=== PATIENT | female | born 1940 | race Caucasian/White ===

== ENCOUNTER → 2017-08-23 | Outpatient (CLI) | payer MEDICARE, BC | LOC: M WHC 15:03 | DX: Z12.31 Encounter for screening mammogram for malignant neoplasm of breast (principal); Z80.3 Family history of malignant neoplasm of breast; Z78.0 Asymptomatic menopausal state | CPT/HCPCS: 77067 ==

== ENCOUNTER → 2021-02-08 | Outpatient (CLI) | payer MEDICARE, BC ==
[~2021-02-08] MED LIST: ACET65TA OR; ALDA25TA4 OR; ALLO300T OR; ASPI81TA45 OR; ASPI81TA86 PO; ATEN50TA2 OR; ATOR1TAB21 PO; B-12100T2 PO; CALCIUM WITH D PO; CIPR500T19 OR; DICL1GEL3; ERGO500029 PO; FISH1000 OR; FLAG500T OR; FURO40TA2 PO; LASI80TA OR; LEVO100T5 PO; METF-838 PO; METF500T4 OR; METO1TAB7 PO; OMEP-221 PO; POTA10CA2 OR; POTA20TA6 PO; SPIR-10 PO; VICO5TAB OR; VITAMIN D PO; ZYLO300T6 PO
--- NOTE | 2021-02-08 16:21 | REP ---
INDICATION: HEMOPTYSIS COMPARISON: 06/25/2011 TECHNIQUE: PA and lateral. FINDINGS: The mediastinum and cardiac silhouette are normal. The lung traylor demonstrate diffuse chronic changes without acute consolidation, effusion, or pneumothorax. The skeletal structures demonstrate degenerative changes primarily involving thoracic spine and bilateral shoulders. IMPRESSION: Chronic interstitial changes. No acute cardiopulmonary process. <Electronically signed by Dennis Staley > 02/08/21 [id number]
== END ==
LOC: M PLAIMG 15:08
PROVIDERS: ATTEND Family Medicine
DX: R04.2 Hemoptysis (principal); J84.89 Other specified interstitial pulmonary diseases

== ENCOUNTER → 2021-04-20 | Outpatient (REF) | payer MEDICARE, BC ==
[2021-04-20 20:26] LABS: MAGNESIUM LEVEL 1.6 MG/DL (1.8-2.4); PERCENT SATURATION 14.2 % (13.2-45.0)
== END ==
LOC: M LAB REF 18:31
PROVIDERS: ATTEND Internal Medicine Nephrology
DX: D50.9 Iron deficiency anemia, unspecified (principal); E83.42 Hypomagnesemia

== ENCOUNTER 2021-05-13 18:06 | Inpatient (IN) | payer MEDICARE, BC ==
[~2021-05-13] VITALS: Ht 157.5 cm; Wt 87.9 kg
[2021-05-13 18:53] LABS: BASO # 0.1 10^3/uL (0.0-0.2); EOS # 0.2 10^3/uL (0.0-0.5); EOS % 3.9 % (0.0-3.0); HEMATOCRIT 32.5 % (36.0-47.0); HEMOGLOBIN 10.3 g/dl (12.0-15.5); LYMPH # 1.3 10^3/uL (1.5-5.0); LYMPH % 20.9 % (24.0-44.0); MEAN CORPUSCULAR HEMOGLOBIN 30.7 pg (27.0-33.0); MEAN CORPUSCULAR HGB CONC 31.7 g/dl (32.0-36.5); MONO # 0.5 10^3/uL (0.0-0.8); MONO % 8.2 % (2.0-8.0); NEUTROPHILS # 4.1 10^3/uL (1.5-8.5); NEUTROPHILS % 65.7 % (36.0-66.0); PLATELET COUNT, AUTOMATED 254 10^3/uL (150-450); RED BLOOD COUNT 3.35 10^6/uL (4.00-5.40); WHITE BLOOD COUNT 6.2 10^3/uL (4.0-10.0)
[2021-05-13 19:13] LABS: PROTHROMBIN TIME 13.6 SECONDS (12.7-14.5)
[2021-05-13 19:14] LABS: PARTIAL THROMBOPLASTIN TIME 23.8 SECONDS (25.9-37.0)
[2021-05-13 19:32] LABS: ALBUMIN 3.7 GM/DL (3.2-5.2); ALT/SGPT 17 U/L (12-78); BILIRUBIN,DIRECT 0.1 MG/DL (0.0-0.2); BILIRUBIN,TOTAL 0.5 MG/DL (0.2-1.0); BLOOD UREA NITROGEN 32 MG/DL (7-18); CALCIUM LEVEL 9.3 MG/DL (8.8-10.2); CARBON DIOXIDE LEVEL 28 MEQ/L (21-32); CHLORIDE LEVEL 108 MEQ/L (98-107); CK-MB VALUE MASS 2.4 NG/ML (<3.6); CPK CREATINE PHOSPHOKINASE 124 U/L (26-192); CREATININE FOR GFR 1.28 MG/DL (0.55-1.30); GLOMERULAR FILTRATION RATE 42.9 (>39); GLUCOSE, FASTING 105 MG/DL (70-100); MB/CK RELATIVE INDEX 1.94 (< OR =4); NT-PRO BNP 411 PG/ML (<450); POTASSIUM SERUM 4.2 MEQ/L (3.5-5.1); SODIUM LEVEL 142 MEQ/L (136-145); THYROXINE (T4) 9.7 UG/DL (4.5-12.0); TOTAL PROTEIN 8.5 GM/DL (6.4-8.2); TROPONIN I < 0.02 NG/ML (< 0.10)
--- NOTE | 2021-05-13 19:48 | ECGEPIP ---
[facility] - ED Test Date: 2021-05-13 Pat Name: CHARISMA SAM Department: Room: - Gender: Female [employer]: : 1940 Requested By: Nitesh Ozuna Order Number: [id number] Reading MD: Nitesh Ozuna Measurements Intervals [place] Rate: 76 P: 36 WV: 136 QRS: 76 QRSD: 136 T: 55 QT: 404 QTc: 454 Interpretive Statements Normal sinus rhythm Right bundle branch block Nonspecific ST T wave changes No prior ECG for comparison Electronically Signed on 05-13-2021 19:48:28 EDT by Nitesh Ozuna
--- NOTE | 2021-05-13 21:00 | REP ---
INDICATION: DYSPNEA/COUGH COMPARISON: 02/08/2021 TECHNIQUE: Portable AP view of the chest FINDINGS: Vague area of opacity in the right mid/upper lung zone. Stable cardiomegaly. Chronic interstitial changes similar to prior examination. No effusion. No pneumothorax. IMPRESSION: Vague area of opacity in the right mid/upper lung zone warrants further investigation. Consider chest CT follow-up. <Electronically signed by Dennis Staley > 05/13/21 [id number]
[2021-05-13] MEDS ORDERED: ISOVUE-370 76% 100ML VIAL As Ordered ONE (22:24)
--- NOTE | 2021-05-14 01:22 | REPVR ---
PROCEDURE INFORMATION: Exam: CTA Chest With Contrast Exam date and time: 05/13/2021 10:28 PM Age: 80 years old Clinical indication: Other: Hemoptysis; Additional info: Hemoptysis, opacity on chest xray TECHNIQUE: Imaging protocol: Computed tomographic angiography of the chest with contrast. 3D rendering (Not supervised by radiologist): MIP and/or 3D reconstructed images were created by the technologist. Radiation optimization: All CT scans at this facility use at least one of these dose optimization techniques: automated exposure control; mA and/or kV adjustment per patient size (includes targeted exams where dose is matched to clinical indication); or iterative reconstruction. Contrast material: ISOVUE 370; Contrast volume: 75 ml; Contrast route: INTRAVENOUS (IV); COMPARISON: CR PORTABLE CHEST X-RAY 05/13/2021 7:09 PM FINDINGS: PULMONARY ARTERIES: The main pulmonary trunk is not dilated above normal range. Enhancement within the pulmonary arteries is preserved bilaterally through the distal segmental levels, without evidence of intraluminal, acute appearing, occlusive pulmonary emboli. There is luminal irregularity and narrowing of anterior right upper lobe segmental pulmonary arterial branch (image 77, series 401) which appears to be secondary to extrinsic compression/invasion, discussed below in greater detail, and not secondary to pulmonary embolus. HEART AND AORTA: Cardiac size is borderline. No pericardial effusion. There is some calcification at the mitral valve and aortic valve. Coronary arterial calcifications are noted. No thoracic aortic aneurysm or dissection. There is calcific thoracic aortic atherosclerosis. Visualized proximal great vessels within the superior mediastinum are atherosclerotic but appear to be patent. There is atherosclerosis within visualized upper most abdomen, including severe appearing celiac axis stenosis with poststenotic dilation and moderate to severe appearing atherosclerotic disease at the origin of the superior mesenteric artery. Remaining vasculature within the abdomen is not included on this exam. MEDIASTINUM: No mediastinal soft tissue gas. The visualized thyroid gland is slightly heterogeneous. Evaluation is limited by beam hardening artifact. No mediastinal hematoma. Trace amount of fluid is seen within the pericardial recesses. Mildly enlarged paratracheal, subcarinal and right hilar lymph nodes are seen. Malignant nodes cannot be excluded. Clinical correlation is advised. LUNGS: The lungs are symmetric in expansion. There is a spiculated, cavitary right upper lobe perihilar pulmonary parenchymal mass measuring approximately 4.3 cm in maximal dimension worrisome for malignancy. Centrally necrotizing infection could have this appearance but is felt less likely. Clinical correlation is advised. This parenchymal mass extends to the right pulmonary hilum. There is occlusion of right upper lobe anterior segmental/subsegmental bronchi and extrinsic compression or invasion of an anterior right upper lobe segmental pulmonary artery. There is luminal irregularity and wall thickening of the right upper lobe bronchus. Invasion of the right mediastinum cannot be excluded. Soft tissue diagnosis is advised. There is a 6 mm right lower lobe pulmonary nodule (image 73, series 401) of uncertain significance but metastatic disease/malignancy would be a consideration. A few scattered subpleural opacities are seen bilaterally of uncertain significance, possibly atelectasis and/or parenchymal scarring. Follow-up is advised to confirm resolution/stability. Mild focal ground-glass opacities are seen within the right lower lobe which could be correlated for mild interstitial pneumonitis. There is no pneumothorax or pleural effusion. UPPER ABDOMEN: No free air or free fluid within the visualized upper most abdomen. 5 mm hypodense left hepatic lobe anterior lesion noted of uncertain significance. 5 mm suspected hyperdense lesion at the upper pole of the right kidney (image 79, series 403). Hypodense lesions at the upper pole of the visualized right kidney may represent cystic changes but the kidney is incompletely assessed. Consider nonemergent formal evaluation of the abdomen for more complete assessment. MSK AND BODY WALL: There is a slightly spiculated left lateral chest wall subcutaneous 14 mm nodule (image 147, series 401) of uncertain significance. Neoplastic lesion or lymph node cannot be excluded with this appearance. Clinical follow-up is advised. This lesion is likely palpable. The bones appear slightly demineralized. Degenerative changes of the spine noted. IMPRESSION: No evidence for acute pulmonary emboli. There is a 4.3 cm spiculated cavitary right upper lobe pulmonary parenchymal mass, worrisome for malignancy. There appears to be extrinsic compression or invasion of the right upper lobe anterior segmental pulmonary artery as well as bronchial involvement. Pulmonary findings discussed above in detail. Indeterminate hepatic lesion and right renal lesion. Indeterminate left lateral chest wall nodule. Nonemergent recommendations discussed above. Other nonemergent findings discussed above. Electronically signed by: Randall Holder On 05/14/2021 01:22:10 AM
[2021-05-14] MEDS ORDERED: METOPROLOL SUCC (TopROL XL) 50MG **XL** TAB PO ONE (03:30)
[2021-05-14] MEDS ORDERED: ALLO300T2 PO (08:57)
[2021-05-14] MEDS ORDERED: POTASSIUM CHLORIDE 10MEQ SR TABLET PO SCH (09:00)
[2021-05-14] MEDS ORDERED: HOME MED LIST COMPLETE! XX SCH (09:25)
[2021-05-14] MEDS ORDERED: NORCO, ANEXSIA 5/325MG TABLET (HYDROcodone/ACETAMINOPHEN) PO PRN (10:05)
[2021-05-14] MEDS ORDERED: LEVALBUTEROL 1.25 MG/0.5 ML CONCENTRATE NEB NEB PRN (10:05)
[2021-05-14] MEDS ORDERED: ONDANSETRON 4MG/2ML VIAL IV PRN (10:05)
[2021-05-14] MEDS ORDERED: BISACODYL 10 MG SUPP PR PRN (10:05)
[2021-05-14] MEDS ORDERED: ACETAMINOPHEN TAB 650MG DOSE (2X325MG) PO PRN (10:05)
[2021-05-14] MEDS ORDERED: GLUCOSE 4GM CHEW TABLET PO PRN (13:35)
[2021-05-14] MEDS ORDERED: DEXTROSE 50% 50 ML SYRINGE IV PRN (13:35)
[2021-05-14] MEDS ORDERED: GLUCAGON INJ 1MG VIAL SC PRN (13:35)
--- NOTE | 2021-05-14 13:35 | HPEPDOC ---
[facility] Medical History & Physical Date of Admission May 14, 2021 Date of Service: May 14, 2021 Attending Physician: Brooklyn Davis MD History and Physical CHIEF COMPLAINT: Coughing up blood HISTORY OF PRESENT ILLNESS: Patient is a 80-year-old female with past medical history of diabetes, hypertens ion, lymphedema of the lower extremities, hypothyroidism, GERD, gout, vitamin D deficiency, hx of tobacco use who presented to [facility] emergency room with the chief complaint of increased episodes of coughing up blood since 05/13/2021. The patient states her symptoms started 05/13/2021 when she began coughing up what she described as several teaspoons of some bright and some dark blood, some ulisses ts. She denies ever having had history of this happening in the past, denies trauma to the chest, denies other bleeding issues. She is not on anticoagulation, antiplatelets or aspirin at home. She denies hematuria, dysuria, shortness of breath, palpitations, fevers, chills, lightheadedness, blurry vision, dizziness. She did admit to some chills but denies recent illness. The patient said that over the evening coughing with blood did not increase. On 05/14/2021 her daughter told her to come to the ER to get further evaluated. In the emergency room her vital signs were stable. She had several coughing episodes of very little blood. H/H was stable and appeared to be close to her baseline. CTA chest showed: No evidence for acute pulmonary emboli but there was an incidental 4.3 cm spiculated cavitary right upper lobe pulmonary parenchymal mass, worrisome for malignancy. It appears to be extrinsic compression or invasion of the right upper lobe anterior segmental pulmonary artery as well as bronchial involvement. Other incidental findings included: indeterminate hepatic lesion, right renal lesion and indeterminate left lateral chest wall nodule. Patient's case was discussed with Dr. Sim, CT surgery, who discussed the case with Dr. Garcia, pulmonary medicine. Decision was made to admit to medicine service for hemoptysis, chest mass r/o neoplasm requiring bronchoscopy. REVIEW OF SYSTEMS: Negative except for what is mentioned above PAST MEDICAL HISTORY: diabetes, hypertension, lymphedema of the lower extremities, hypothyroidism, GERD, gout, vitamin D deficiency, hx of tobacco use, ?CKD stage II PAST SURGICAL HISTORY: Cholecystectomy, bilateral carpal tunnel release FAMILY HISTORY: Fathercolon cancer, CVA. Brotherblood dyscrasia. at 65 years old SOCIAL HISTORY: Higher smoker 1 pack per day for 33 years. Quit 30 years ago. Drugs alcohol socially, denies illicit drug use. She lives with her whom she helps care for. She follows with primary care provider and nephrology regularly. ALLERGIES: Please see below. HOME MEDICATIONS: Please see below. PHYSICAL EXAMINATION: VS: 97F, heart rate 6772, blood pressure 164/72, 93% on room air CONSTITUTIONAL: No acute distress, resting comfortably, AAO x 3 EYES: PERRLA, EOM intact HENT, MOUTH: Normocephalic, atraumatic, moist mucous membranes NECK: SUPPLE, no JVD, no lymphadenopathy, no carotid bruit CV: Regular rate and rhythm, S1S2 normal, no murmurs/rubs/gallops RESPIRATORY: Clear to auscultation bilaterally, no rales/rhonchi/wheezes GI: BS positive in 4 quadrants, soft, nontender, nondistended, no rebound or guarding, no organomegaly : Deferred MUSCULOSKELETAL: Normal ROM of extremities. No cyanosis, clubbing, joint deformity. B/l lower ext lymphedema, no pitting extremity edema. Large lipoma on left shoulder, right thoracic area of back. INTEGUMENTARY: Intact, no rashes, no lesions, no erythema NEUROLOGIC: Cranial Nerves II-XII are intact, no focal deficits PSYCHIATRIC: Mood and affect are normal LABORATORY DATA: Please see below MICRO: F/u blood cultures x 2 IMAGING: CTA chest: No evidence for acute pulmonary emboli. There is a 4.3 cm spiculated cavitary right upper lobe pulmonary parenchymal mass, worrisome for malignancy. There appears to be extrinsic compression or invasion of the right upper lobe anterior segmental pulmonary artery as well as bronchial involvement. Pulmonary findings discussed above in detail. Indeterminate hepatic lesion and right renal lesion. Indeterminate left lateral chest wall nodule. Nonemergent recommendations discussed above. ASSESSMENT: 80-year-old female with past medical history of diabetes, hypertension, lymphedema of the lower extremities, hypothyroidism, GERD, gout, vitamin D deficiency, hx of tobacco use admitted to medicine service for hemoptysis, chest mass r/o neoplasm requiring bronchoscopy. PLAN: Hemoptysis likely 2/2 to chest mass r/o neoplasm -H/H stable, currently no increased coughing or bleeding -CTA above, long history of tobacco use -Discussed with CT surgery (Dr. Sim) and Pulmonary (Dr. Garcia). Plan is bronchoscopy on 05/15/21, NPO after midnight tonight -Tele, Q6HCBC, no AC, close monitoring on PCU Diabetes mellitus -BS stable -FS AC, ISS, consistent carb diet Hypertension -Resume home antihypertensive. Lymphedema of the lower extremities, chronic -C/w home diuretics Hypothyroidism -Levothyroxine GERD -PPI Gout -Allopurinol ?CKD stage II -Cr wnl currently -Follows with Dr. Hancock, nephrology DVT px -SCD, teds. AC CI due to bleeding DISPOSITION: Admitted to PCU. Plan is bronchoscopy in the AM, consults above. Plan is home when medically improved. Vital Signs Vital Signs Date Time Temp Pulse Resp B/P (MAP) Pulse Ox O2 Delivery O2 Flow Rate FiO2 05/14/21 12:15 64 93 05/14/21 12:01 160/64 (96) 05/14/21 07:30 97.8 18 Room Air Laboratory Data Labs 24H Laboratory Tests 2 05/13/21 18:40: Immature Granulocyte % (Auto) 0.3, Neutrophils (%) (Auto) 65.7, Lymphocytes (%) (Auto) 20.9L, Monocytes (%) (Auto) 8.2H, Eosinophils (%) (Auto) 3.9H, Basophils (%) (Auto) 1.0, Neutrophils # (Auto) 4.1, Lymphocytes # (Auto) 1.3L, Monocytes # (Auto) 0.5, Eosinophils # (Auto) 0.2, Basophils # (Auto) 0.1, Nucleated Red Blood Cells % (auto) 0.0, Prothrombin Time 13.6, Prothromb Time International Ratio 1.00, Activated Partial Thromboplast Time 23.8L, Anion Gap 6L, Glomerular Filtration Rate 42.9, Calcium Level 9.3, Total Bilirubin 0.5, Direct Bilirubin 0.1, Aspartate Amino Transf (AST/SGOT) 17, Alanine Aminotransferase (ALT/SGPT) 17, Alkaline Phosphatase 140H, Total Creatine Kinase 124, Creatine Kinase MB 2.4, Creatine Kinase MB Relative Index 1.94, Troponin I < 0.02, IJ-[id number]-Type Natriuretic Peptide 411, Total Protein 8.5H, Albumin 3.7, Albumin/Globulin Ratio 0.8L, Thyroid Stimulating Hormone (TSH) 5.140H, Thyroxine (T4) 9.7 CBC/BMP Laboratory Tests 05/13/21 18:40 Microbiology Microbiology 05/13/21 Respiratory Virus Panel (PCR) ([facility]) - Final, Complete Home Medications Scheduled Atorvastatin Calcium (Atorvastatin Calcium) 20 Mg Tablet, 20 MG PO QHS Ergocalciferol (Vitamin D2) (Vitamin D2) 50,000 Units Cap, 50,000 UNIT PO Q2WK Furosemide (Furosemide) 40 Mg Tablet, 40 MG PO DAILY Levothyroxine Sodium (Levothyroxine Sodium) 100 Mcg Tablet, 100 MCG PO DAILY Metformin HCl (Metformin HCl ER) 500 Mg Tab.er.24h, 1,000 MG PO BID Metoprolol Succinate (Metoprolol Succinate) 50 Mg Tab.er.24h, 50 MG PO DAILY Omeprazole (Omeprazole) 40 Mg Capsule.dr, 40 MG PO DAILY Potassium Chloride (Potassium Chloride) 20 Meq Tab.er.prt, 20 MEQ PO BID Spironolactone (Spironolactone) 25 Mg Tablet, 50 MG PO DAILY allopurinoL (allopurinoL) 300 Mg Tablet, 300 MG PO Q2D Allergies Coded Allergies: Penicillins (Verified Allergy, Unknown, 09/23/19) A-FIB/CHADSVASC A-FIB History Current/History of A-Fib/PAF?: No Current PO Anticoag Therapy: No Age/Risk Factor Scoring CHADSVASC: CHADSVASC Response (Comments) Value Age Risk Factor Age >/= 75 years old 2 Gender Risk Factor Female 1 Hx of CHF No 0 Hx of HTN Yes 1 Hx of Stroke/TIA/or VTE No 0 Hx of Diabetes Yes 1 Hx of Vascular Disease Yes 1 Total 6 Treatment Treatment ordered: Other Other anticoagulant ordered: scd Brooklyn Davis MD May 14, 2021 13:35
[2021-05-14 14:49] LABS: HEMOGLOBIN 9.1 g/dl (12.0-15.5); MEAN CORPUSCULAR HGB CONC 31.4 g/dl (32.0-36.5); MEAN CORPUSCULAR VOLUME 95.7 fl (80.0-96.0); PLATELET COUNT, AUTOMATED 222 10^3/uL (150-450); RED BLOOD COUNT 3.03 10^6/uL (4.00-5.40); WHITE BLOOD COUNT 6.1 10^3/uL (4.0-10.0)
--- NOTE | 2021-05-14 15:33 | CR.PDOC ---
General Date of Consultation: May 14, 2021 Referring Provider: Brooklyn Davis MD Attending Physician: Brooklyn Davis MD Consultation REASON FOR CONSULTATION/CHIEF COMPLAINT: Hemoptysis and right upper lobe cavitary lesion HISTORY OF PRESENT ILLNESS: This is a 72-year-old female with past medical history of diabetes, hypertension, lower extremity lymphedema, hypothyroidism, former tobacco smoker of [id number] smoking history presented to hospital with hemoptysis . Patient was having about 2 teaspoon size of fresh and clotted blood hemoptysis last night when she was trying to help her who has Parkinson. She became worried and came to the emergency department for further evaluation. Other than experiencing hemoptysis, she does not have any symptoms of fever, chills, night sweat, weight loss, sick contact, shortness of breath, wheezing, chest pain. She has never been incarcerated in the past. There is no new changes in her environment. She has not relocated anywhere recently. She has been babysitting her son's dog occasionally. Upon admission to the hospital, her blood work was unremarkable. However, CT angiography of the chest done showed right upper lobe cavitary lesion. This lesion is located between the takeoff of right upper lobe anterior and posterior segment. There is also mildly enlarged paratracheal and subcarinal lymph node. Pulmonary was consulted for further recommendation and work-up. PAST MEDICAL HISTORY: diabetes, hypertension, lymphedema of the lower extremities, hypothyroidism, GERD, gout, vitamin D deficiency, hx of tobacco use, ?CKD stage II PAST SURGICAL HISTORY: Cholecystectomy, bilateral carpal tunnel release FAMILY HISTORY: Fathercolon cancer, CVA. Brotherblood dyscrasia. at 65 years old SOCIAL HISTORY: Higher smoker 1 pack per day for 33 years. Quit 30 years ago. Drugs alcohol socially, denies illicit drug use. She lives with her whom she helps care for. She follows with primary care provider and nephrology regularly. ALLERGIES: Please see below. HOME MEDICATIONS: Please see below. REVIEW OF SYSTEMS: 12 point review of system was negative except for stated in HPI. PHYSICAL EXAMINATION: VITAL SIGNS: Please see below. GENERAL APPEARANCE: Alert and oriented x3. Not in any acute distress.. HEENT: No evidence of JVD or cervical adenopathy. RESPIRATORY: Clear to auscultation bilaterally with no evidence of wheezing, crackles, rhonchi. CARDIOVASCULAR: Normal S1-S2 with no evidence of murmur. ABDOMEN: Soft nontender with normoactive bowel sounds. EXTREMITIES: No evidence of clubbing of the fingers. Bilateral pedal edema which is nonpitting. NEUROLOGICAL: Nonfocal. PSYCHIATRIC: Alert and oriented x3. LABORATORY DATA: Please see below. ASSESSMENT/PLAN: This is a 72-year-old female with past medical history of diabetes, hypertension, lower extremity lymphedema, hypothyroidism, former tobacco smoker of [id number] smoking history presented to hospital with hemoptysis. 1. Hemoptysis. 2. Right upper lobe cavitary lesion. 3. Mildly enlarged mediastinal lymph nodes. Plan: -Given the lack of constitutional symptoms and no history of sick contact or exposure, infectious etiology is less likely. I believe malignancy is at the top of the differential followed by inflammatory process. However, due to the hemoptysis, we will perform a diagnostic bronchoscopy with possible BAL and brush biopsy. At some point she may require an EBUS depending on the finding on bronchoscopy. -N.p.o. after midnight tonight. -Consent for bronchoscopy obtained with risk and benefit explained. Biggest risk with this procedure is respiratory failure, bleeding, pneumothorax with biopsy. Patient understands and already signed the procedure consent. Vital Signs/I&O Vital Signs Date Time Temp Pulse Resp B/P (MAP) Pulse Ox O2 Delivery O2 Flow Rate FiO2 05/14/21 13:15 65 93 05/14/21 13:00 97.7 16 150/67 (94) Room Air Laboratory Data Labs 24H Laboratory Tests 2 05/13/21 18:40: Immature Granulocyte % (Auto) 0.3, Neutrophils (%) (Auto) 65.7, Lymphocytes (%) (Auto) 20.9L, Monocytes (%) (Auto) 8.2H, Eosinophils (%) (Auto) 3.9H, Basophils (%) (Auto) 1.0, Neutrophils # (Auto) 4.1, Lymphocytes # (Auto) 1.3L, Monocytes # (Auto) 0.5, Eosinophils # (Auto) 0.2, Basophils # (Auto) 0.1, Nucleated Red Blood Cells % (auto) 0.0, Prothrombin Time 13.6, Prothromb Time International Ratio 1.00, Activated Partial Thromboplast Time 23.8L, Anion Gap 6L, Glomerular Filtration Rate 42.9, Calcium Level 9.3, Total Bilirubin 0.5, Direct Bilirubin 0.1, Aspartate Amino Transf (AST/SGOT) 17, Alanine Aminotransferase (ALT/SGPT) 17, Alkaline Phosphatase 140H, Total Creatine Kinase 124, Creatine Kinase MB 2.4, Creatine Kinase MB Relative Index 1.94, Troponin I < 0.02, [id number]-Pzu-[id number]-Type Natriuretic Peptide 411, Total Protein 8.5H, Albumin 3.7, Albumin/Globulin Ratio 0.8L, Thyroid Stimulating Hormone (TSH) 5.140H, Thyroxine (T4) 9.7 05/14/21 14:29: Nucleated Red Blood Cells % (auto) 0.0 CBC/BMP Laboratory Tests 05/13/21 18:40 05/14/21 14:29 Microbiology Microbiology 05/13/21 Respiratory Virus Panel (PCR) ([facility]) - Final, Complete Allergies Coded Allergies: Penicillins (Verified Allergy, Unknown, 09/23/19) Home Medications Scheduled Atorvastatin Calcium (Atorvastatin Calcium) 20 Mg Tablet, 20 MG PO QHS, (Reported) Ergocalciferol (Vitamin D2) (Vitamin D2) 50,000 Units Cap, 50,000 UNIT PO Q2WK, (Reported) Furosemide (Furosemide) 40 Mg Tablet, 40 MG PO DAILY, (Reported) Levothyroxine Sodium (Levothyroxine Sodium) 100 Mcg Tablet, 100 MCG PO DAILY, (Reported) Metformin HCl (Metformin HCl ER) 500 Mg Tab.er.24h, 1,000 MG PO BID, (Reported) Metoprolol Succinate (Metoprolol Succinate) 50 Mg Tab.er.24h, 50 MG PO DAILY, (Reported) Omeprazole (Omeprazole) 40 Mg Capsule.dr, 40 MG PO DAILY, (Reported) Potassium Chloride (Potassium Chloride) 20 Meq Tab.er.prt, 20 MEQ PO BID, (Reported) Spironolactone (Spironolactone) 25 Mg Tablet, 50 MG PO DAILY, (Reported) allopurinoL (allopurinoL) 300 Mg Tablet, 300 MG PO Q2D, (Reported) GONZALEZ LAYTON MD May 14, 2021 15:33
[2021-05-14] MEDS: FUROSEMIDE 40 MG TAB PO SCH (15:38)
[2021-05-14] MEDS: OMEPRAZOLE 20 MG CAP PO SCH (15:38)
[2021-05-14] MEDS: METOPROLOL SUCC (TopROL XL) 50MG **XL** TAB PO SCH (15:39)
[2021-05-14 15:45] VITALS: BP 162/88
[2021-05-14] MEDS ORDERED: KETOROLAC 30 MG/ML 1ML VIAL IV SCH (16:00)
[2021-05-14] MEDS: LEVOTHYROXINE 100MCG TABLET (0.1MG) PO SCH (16:43)
[2021-05-14] MEDS: SPIRONOLACTONE 25 MG TAB PO SCH (16:44)
[2021-05-14] MEDS: LEVALBUTEROL 1.25 MG/0.5 ML CONCENTRATE NEB NEB SCH ×2 (16:46→20:00)
[2021-05-14 16:47] LABS: ABG BASE EXCESS 1.2 (-2.0-2.0); ABG O2 SATURATION 98.5 % (95.0-99.0); ABG PARTIAL PRESSURE CO2 36.4 mmHg (35.0-45.0); ABG PARTIAL PRESSURE O2 117.4 mmHg (75.0-100.0); ABG STANDARD HCO3 25.5 MEQ/L (22.0-26.0); ABG TOTAL CO2 26.1 MEQ/L (23.0-31.0); ABG pH (ARTERIAL) 7.454 UNITS (7.350-7.450)
--- NOTE | 2021-05-14 17:13 | CR ---
CONSULTATION DATE: 05/14/2021 REASON FOR CONSULTATION: The patient is seen at the request of Dr. Doherty of the emergency room for hemoptysis. HISTORY OF PRESENT ILLNESS: The patient is a 80-year-old white female who reports over the last two days spitting up blood. Just prior to admission, she coughed up clots which were bright red. She denied that it is true coughing and not hemoptysis. This has never happened before. She does not complain of shortness of breath. There has been no chest pain or chest discomfort. The last 24 to 48 hours, she has noticed some wheezing. There has been no fever or sweats but she does state that she has been chilly but denies rigor. There has been no weight loss. She has been seen by hematology-oncology in 2019 for monoclonal gammopathy of unknown significance. This was first noted by urologist in [place] for mild chronic renal insufficiency. PAST MEDICAL HISTORY: 1. Diabetes. 2. Hypertension. 3. Hypothyroidism. 4. Anion gap and mild chronic renal insufficiency. 5. Chronic lymphedema which has been present for years in her lower legs of unknown origin. PAST SURGICAL HISTORY: 1. Cholecystectomy. 2. Carpal tunnel repair. MEDICATIONS AT HOME: 1. Allopurinol 300 mg every other day. 2. Atorvastatin 20 mg q.h.s. 3. Vitamin D2 1000 units q.2 weeks. 4. Lasix 40 mg q.day. 5. Synthroid 100 mcg q.day. 6. Metformin 1000 mg b.i.d. 7. Metoprolol succinate 50 mg q.day. 8. Omeprazole 40 mg q.day. 9. Potassium chloride 20 mEq b.i.d. 10. Spironolactone 50 mg q.day. 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 Rarely imbibes alcohol and no illicit drugs. TRAVEL HISTORY: She has traveled through the [facility] down to [place] and [place] in the past. No travel from the [facility] or foreign travel. EXPOSURES: She has a Geovany Sharath at home which she is transiently taking care of for her son. No birds or cats. 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 No asbestos exposure. FAMILY HISTORY: Father with colon cancer and mother "of old age" at 87 years old. REVIEW OF SYSTEMS: Constitutional: See HPI. Mild chills, no fever, sweats or weight loss. Eyes: Without diplopia, without amaurosis fugax or prior jaundice. Mouth has upper dentures. Respiratory: See HPI. Cardiac: Without true orthopnea or paroxysmal nocturnal dyspnea. She sleeps in a recliner secondary to her dying of Parkinson's disease and making it difficult for her to sleep in the same bed. No palpitations or tachycardias. No prior history of myocardial infarction. She has chronic swelling of her lower extremities. GI: Without nausea, vomiting, diarrhea, constipation, melena, hematochezia, hematemesis or abdominal pain. : Without hematuria but with polyuria, without dysuria. Neurologic: Without paresthesias, paralyses, transient monocular blindness or prior seizures. Hematologic: She has the above monoclonal gammopathy with mild anemia for which she recently has been placed on iron. Without prolonged bleeding times and not on any anticoagulation. Endocrine: With the above diabetes and hypothyroidism. Psychiatric: Without pathological anxiety, depression or psychosis. PHYSICAL EXAMINATION: General: A well-developed, overweight, obese white female in no acute distress. Vital signs: Temperature 97.8. Heart rate is 69, in sinus rhythm, respiratory rate of 18 without use of accessory muscles who is 92% saturated on room air and her blood pressure is 167/72. Eyes: Pupils equal, round and reactive to light. Extraocular muscles intact. Sclerae nonicteric. Head: Normocephalic, nose without deformity. Mouth shows mucous membranes to be pink and moist, lips and commissures without lesions. There is no thrush. She is not wearing her upper dentures and she is edentulous. Lower teeth had multiple missing teeth. Neck: Supple. There is no jugular venous distention, no subcutaneous emphysema. Trachea is midline. She has 2+ carotid upstrokes without carotid bruits. There is no thyromegaly or lymphadenopathy. Lungs show percussion that is full to the diaphragm. Auscultation reveals normal fascicular sounds without wheezes, rhonchi or rales. Cardiac exam without murmurs, clicks, gallops or rubs although she does have a prominent S2. I cannot feel PMI. S-1 is normal. Abdomen: Soft, nontender. Bowel sounds are positive. There is no hepatomegaly. No CVA tenderness. Extremities show bilateral woody edema, more on the right than the left. The woody edema extends all the way to her thighs. She has 1-2+ dorsalis pedis pulses. Lymphatics: There is no cervical, infraclavicular, supraclavicular, axillary or trochlear lymphadenopathy. Neuro/II through XII: Intact. Normal gross motor. Gross sensation intact. Ears not tested. Psychiatric shows her to be awake and alert x3 with appropriate mood and affect and conversational. LABORATORY DATA: Her white count is 6.2 with a hemoglobin and hematocrit of 10.3 and 32.5. Platelet count is 254. Differential shows 65% neutrophils, 20% lymphocytes, 8% monocytes. No immature forms or toxic granulations. Electrolytes are essentially normal with a BUN and creatinine of 32 and 1.28, glucose of 105 and calcium of 9.3 with a corresponding albumin of 3.7. TSH is 5.1 which is elevated, above the upper limit of normal of 3.7. Her PT/INR are 13.6 and 1.0 respectively with a PTT of 23 seconds. COVID status pending. IMAGING: Her chest x-ray shows her lungs fully expanded to chest wall. It is done portably. I see no infiltrates although there may be a cavitary lesion in the right upper hemithorax towards the mid-hemithorax. Cardiac silhouette is normal size. Carinae are sharp with the left being cut off from the x-ray plate. CT angio of her chest shows a cavitary lesion in the right upper lobe. The element of concern is the cutoff of the anterior branch of the right upper lobe artery. It is somewhat of an unusual pattern with the anterior artery coming off separately from the right main stem pulmonary artery so the mass is cutting it off and occluding it. The cavitary portion of the mass looks more peripheral. Her parenchyma looks to be fairly intact without emphysematous changes. There is either direct extension to the mediastinum or paratracheal lymphadenopathy to the right of trachea just before the bifurcation. There also could be a fullness of subcarinal node. IMPRESSION: 1. New onset hemoptysis. 2. Hypertension. 3. Hypothyroidism. 4. Diabetes. 5. Possible gout. PLAN/DISCUSSION: The immediate problem is the hemoptysis. By history, she has coughed up clots which have been bright red. At the present time, she is not hemoptysizing nor is she coughing. I think it has come upon us to admit her to the hospital as this may be a heralding bleed of massive hemoptysis and be prepared to deal with that hemoptysis with COVID protection and positioning as well as interventional radiology. For the time being, however, this should be an expedited but routine pulmonary workup to include bronchoscopy with biopsies to provide a tissue diagnosis. Our biggest concern is malignancy although this could also represent a fungal process, in particular aspergillosis. It is more central, however, and I do not see underlying emphysematous changes which would be leading to the accessibility to aspergillus. As the tumor may be invading the mediastinum, the surgical option is off the table but would be a candidate for chemo/immunotherapy depending upon the genetics of the tumor and local radiation. I should be noted that 90% of hemoptysis originates from bronchial arteries rather than pulmonary artery. The observation of bright red blood versus dark blood supports that in her. If she develops massive hemoptysis, embolization of the bronchial arteries would be in order. For right now, however, we need to proceed with a systematic pulmonary workup just as we would for any other mass that would present. The only reason to admit her is to be prepared for a massive hemoptysis should this be a heralding bleed. I discussed the case with Dr. Garcia of pulmonology and he will take her to the operating room tomorrow for bronchoscopy. It is an urgent bronchoscopy so as to obtain a diagnosis expeditiously so that treatment can be instituted.
[2021-05-14] MEDS ORDERED: HumaLOG INSULIN (NovoLOG) PER UNIT SC SCH (17:30)
[2021-05-14 20:00] VITALS: BP 147/68
[2021-05-14] MEDS: DOCUSATE SODIUM 100MG CAPSULE PO SCH (20:15)
[2021-05-14] MEDS: ATORVASTATIN 20 MG TAB PO SCH (20:16)
[2021-05-14 21:11] LABS: HEMATOCRIT 31.4 % (36.0-47.0); MEAN CORPUSCULAR HEMOGLOBIN 30.8 pg (27.0-33.0); MEAN CORPUSCULAR HGB CONC 31.8 g/dl (32.0-36.5); MEAN CORPUSCULAR VOLUME 96.6 fl (80.0-96.0); PLATELET COUNT, AUTOMATED 241 10^3/uL (150-450); RED BLOOD COUNT 3.25 10^6/uL (4.00-5.40); WHITE BLOOD COUNT 8.4 10^3/uL (4.0-10.0)
[2021-05-14] MEDS: NS 1,000 ML IV SCH (22:00)
[2021-05-15] VITALS (7 sets, daily range): BP systolic 123–168; BP diastolic 51–72
[2021-05-15] MEDS: LEVALBUTEROL 1.25 MG/0.5 ML CONCENTRATE NEB NEB SCH ×4 (01:06→19:37)
[2021-05-15 01:20] LABS: HEMATOCRIT 28.6 % (36.0-47.0); HEMOGLOBIN 9.1 g/dl (12.0-15.5); MEAN CORPUSCULAR HEMOGLOBIN 30.1 pg (27.0-33.0); MEAN CORPUSCULAR HGB CONC 31.8 g/dl (32.0-36.5); MEAN CORPUSCULAR VOLUME 94.7 fl (80.0-96.0); PLATELET COUNT, AUTOMATED 235 10^3/uL (150-450); RED BLOOD COUNT 3.02 10^6/uL (4.00-5.40); WHITE BLOOD COUNT 8.2 10^3/uL (4.0-10.0)
[2021-05-15] MEDS: LEVOTHYROXINE 100MCG TABLET (0.1MG) PO SCH (06:00)
[2021-05-15] MEDS ORDERED: THROMBIN SOLN 5,000 UNITS VIAL As Ordered ONE (07:15)
[2021-05-15] MEDS ORDERED: EPINEPHrine 1MG/10ML SYRINGE 1.5IN As Ordered ONE (07:15)
[2021-05-15] MEDS ORDERED: CETACAINE SPRAY 5GM As Ordered ONE (07:16)
[2021-05-15] MEDS ORDERED: dexameTHASONE 4 MG/ML 1ML VIAL (J1100 PER 1MG) As Ordered ONE (07:20)
[2021-05-15] MEDS ORDERED: LIDOCAINE 2% 100MG/5ML SDV (FOR ANES.) As Ordered ONE (07:20)
[2021-05-15] MEDS ORDERED: MIDAZOLAM INJ 2MG/2ML VIAL (J2250 PER 1MG) As Ordered ONE (07:20)
[2021-05-15] MEDS ORDERED: ONDANSETRON 4MG/2ML VIAL As Ordered ONE (07:20)
[2021-05-15] MEDS ORDERED: fentaNYL 100 MCG/2 ML INJECTION (J3010) As Ordered ONE (07:20)
[2021-05-15] MEDS ORDERED: ROCURONIUM BROMIDE 50 MG/5 ML VIAL As Ordered ONE (07:20)
[2021-05-15] MEDS ORDERED: propofoL 200 MG/20 ML VIAL As Ordered ONE (07:20)
[2021-05-15] MEDS ORDERED: SUCCINYLCHOLINE 100 MG/5 ML SYRINGE (J0330) As Ordered ONE (08:07)
[2021-05-15] MEDS ORDERED: SUGAMMADEX SODIUM 500 MG/5 ML VIAL (BRIDION) As Ordered ONE (08:10)
[2021-05-15] MEDS ORDERED: LABETALOL 100MG/20ML VIAL As Ordered ONE (08:17)
--- NOTE | 2021-05-15 08:38 | POST-OPPD ---
Postoperative Procedure Note Date Of Procedure: May 15, 2021 Time Of Procedure: 08:00 PREOPERATIVE DIAGNOSIS: Hemoptysis POSTOPERATIVE DIAGNOSIS: Hemoptysis coming from right upper lobe anterior segment. PROCEDURE: Diagnostic flexible bronchoscopy with bronchoalveolar lavage of right upper lobe (anterior segment) SURGEON: Gonzalez Coleman ANESTHESIA: General ESTIMATED BLOOD LOSS: None FINDINGS: After patient was intubated, flexible bronchoscope was introduced into the trachea through endotracheal tube. Residual blood was observed all throughout the entire tracheobronchial tree which was all suctioned. There was active slow bleeding coming from the anterior segment of the right upper lobe. No endobronchial lesion was observed. 2 x Bronchoalveolar lavage was done in the anterior segment of RUL using 60cc NS; one sample was sent for cytology and another same was sent for C&S, AFB, fungal. SPECIMENS: BAL 60cc x 2 of right upper lobe (anterior segment) COMPLICATIONS: none POSTOPERATIVE CONDITION: Stable, return to regular medsur floor. Patient tolerated the procedure without complication. Recommendations: -Follow up cytology and microbiology. -Start patient on antibiotic Levaquin for total 7 days. -Please sent JJ, Rheumatoid factor, anti-CCP, C & P-ANCA, dsDNA antibody, anti- glomerular basal membrane antibody. GONZALEZ LAYTON MD May 15, 2021 08:38
[2021-05-15] MEDS ORDERED: fentaNYL 100 MCG/2 ML INJECTION (J3010) IV PRN (08:45)
[2021-05-15] MEDS ORDERED: ONDANSETRON 4MG/2ML VIAL IV PRN (08:45)
[2021-05-15] MEDS ORDERED: LR 1,000 ML IV SCH (08:45)
[2021-05-15] MEDS ORDERED: METOCLOPRAMIDE INJ 10MG/2ML VIAL (J2765 PER 1) IV PRN (08:45)
[2021-05-15] MEDS ORDERED: allopurinoL 300 MG TAB PO SCH (09:00)
[2021-05-15] MEDS ORDERED: FLUBLOK(EGG FREE)(QUAD)INFLUENZA VACC 0.5ML SYRINGE 18YRS & OLDER IM ONE (09:00)
[2021-05-15] MEDS: SPIRONOLACTONE 25 MG TAB PO SCH (10:11)
[2021-05-15] MEDS: PANTOPRAZOLE 40MG TAB (PROTONIX) PO SCH (10:12)
[2021-05-15] MEDS: OMEPRAZOLE 20 MG CAP PO SCH (10:12)
[2021-05-15] MEDS: FUROSEMIDE 40 MG TAB PO SCH (10:13)
[2021-05-15] MEDS: METOPROLOL SUCC (TopROL XL) 50MG **XL** TAB PO SCH (10:14)
[2021-05-15] MEDS: DOCUSATE SODIUM 100MG CAPSULE PO SCH ×2 (10:15→20:28)
[2021-05-15] MEDS: MOM 30ML SUSPENSION UDC PO SCH (10:15)
[2021-05-15] MEDS: NS 1,000 ML IV SCH (11:10)
--- NOTE | 2021-05-15 11:32 | REP ---
INDICATION: hemoptysis COMPARISON: 05/13/2021 TECHNIQUE: PA and lateral. FINDINGS: There is an enlarging opacity in the right mid lung zone measuring roughly 7 cm extending from the right hilum. No effusion. No pneumothorax. Cardiac silhouette is normal. Skeletal structures are intact. IMPRESSION: Enlarging area of mass/opacity in the right midlung zone. <Electronically signed by Dennis Staley > 05/15/21 112
[2021-05-15 11:51] LABS: HEMATOCRIT 32.4 % (36.0-47.0); HEMOGLOBIN 10.1 g/dl (12.0-15.5); MEAN CORPUSCULAR HEMOGLOBIN 30.4 pg (27.0-33.0); MEAN CORPUSCULAR HGB CONC 31.2 g/dl (32.0-36.5); MEAN CORPUSCULAR VOLUME 97.6 fl (80.0-96.0); PLATELET COUNT, AUTOMATED 271 10^3/uL (150-450); RED BLOOD COUNT 3.32 10^6/uL (4.00-5.40); WHITE BLOOD COUNT 9.3 10^3/uL (4.0-10.0)
[2021-05-15 12:21] LABS: CALCIUM LEVEL 8.9 MG/DL (8.8-10.2); CREATININE FOR GFR 1.17 MG/DL (0.55-1.30); GLOMERULAR FILTRATION RATE 47.6 (>39)
[2021-05-15 13:41] LABS: HEMATOCRIT 34.4 % (36.0-47.0); HEMOGLOBIN 10.6 g/dl (12.0-15.5); MEAN CORPUSCULAR HEMOGLOBIN 30.5 pg (27.0-33.0); MEAN CORPUSCULAR HGB CONC 30.8 g/dl (32.0-36.5); MEAN CORPUSCULAR VOLUME 98.9 fl (80.0-96.0); PLATELET COUNT, AUTOMATED 222 10^3/uL (150-450); RED BLOOD COUNT 3.48 10^6/uL (4.00-5.40); WHITE BLOOD COUNT 8.8 10^3/uL (4.0-10.0)
--- NOTE | 2021-05-15 17:37 | IPNPDOC ---
Date Seen The patient was seen on 05/15/21. Progress Note SUBJECTIVE: Diagnostic flexible bronchoscopy with bronchoalveolar lavage of right upper lobe (anterior segment) done and results below. Patient has some sore throat, no other complaints on RA. Denies SOB, chest pain. OBJECTIVE: PHYSICAL EXAMINATION: VS: Please see below CONSTITUTIONAL: No acute distress, resting comfortably, AAO x 3 EYES: PERRLA, EOM intact HENT, MOUTH: Normocephalic, atraumatic, moist mucous membranes NECK: SUPPLE, no JVD, no lymphadenopathy, no carotid bruit CV: Regular rate and rhythm, S1S2 normal, no murmurs/rubs/gallops RESPIRATORY: Clear to auscultation bilaterally, no rales/rhonchi/wheezes GI: BS positive in 4 quadrants, soft, nontender, nondistended, no rebound or guarding, no organomegaly : Deferred MUSCULOSKELETAL: Normal ROM of extremities. No cyanosis, clubbing, joint deformity. B/l lower ext lymphedema, no pitting extremity edema. Large lipoma on left shoulder, right thoracic area of back. INTEGUMENTARY: Intact, no rashes, no lesions, no erythema NEUROLOGIC: Cranial Nerves II-XII are intact, no focal deficits PSYCHIATRIC: Mood and affect are normal LABORATORY DATA: Please see below MICRO: Bcx NG Sputum cx pending IMAGING: Bronchoscopy 05/15/21: Hemoptysis coming from right upper lobe anterior segment. ASSESSMENT: 80-year-old female with past medical history of diabetes, hypertension, lymphedema of the lower extremities, hypothyroidism, GERD, gout, vitamin D deficiency, hx of tobacco use admitted to medicine service for hemoptysis, chest mass r/o neoplasm requiring bronchoscopy. PLAN: Hemoptysis likely 2/2 to chest mass r/o neoplasm -H/H stable, currently no increased coughing or bleeding -Bronchoscopy results above -CT surgery (Dr. Sim) and Pulmonary (Dr. Garcia) following -Follow up cytology and microbiology, JJ, Rheumatoid factor, anti-CCP, C & P-A NCA, dsDNA antibody, anti-glomerular basal membrane antibody. -Levaquin for total 7 days. -Tele, Q6HCBC, no AC, close monitoring on PCU Diabetes mellitus -BS stable -FS AC, ISS, consistent carb diet Hypertension -C/w home meds Lymphedema of the lower extremities, chronic -C/w home diuretics Hypothyroidism -Levothyroxine GERD -PPI Gout -Allopurinol ?CKD stage II -Cr wnl currently -Follows with Dr. Hancock, nephrology DVT px -SCD, teds. AC CI due to bleeding DISPOSITION: Admitted to PCU. Plan is home when medically improved. VS, I&O, 24H, Fishbone Vital Signs/I&O Vital Signs Date Time Temp Pulse Resp B/P (MAP) Pulse Ox O2 Delivery O2 Flow Rate FiO2 05/15/21 16:01 146/64 (91) 05/15/21 16:00 97.0 85 20 97 Room Air 05/15/21 08:46 10.0 I&O- Last 24 Hours up to 6 AM 05/15/21 06:00 Intake Total 1260 ml Output Total 1500 ml Balance -240 ml Laboratory Data 24H LABS Laboratory Tests 2 05/14/21 21:02: Nucleated Red Blood Cells % (auto) 0.0 05/15/21 01:10: Nucleated Red Blood Cells % (auto) 0.0 05/15/21 07:40: Bedside Glucose (Misc Panel) 93 05/15/21 11:34: Nucleated Red Blood Cells % (auto) 0.0, Anion Gap 6L, Glomerular Filtration Rate 47.6, Calcium Level 8.9, SU-Mai-H-Type Natriuretic Peptide 804H 05/15/21 11:57: Bedside Glucose (Misc Panel) 156H 05/15/21 13:20: Nucleated Red Blood Cells % (auto) 0.0 CBC/BMP Laboratory Tests 05/14/21 21:02 05/15/21 01:10 05/15/21 11:34 05/15/21 13:20 Microbiology Microbiology 05/15/21 Acid Fast Stain - Final, Resulted 05/15/21 Mycobacterial Culture, Resulted Pending 05/15/21 Fungal Smear, Resulted Pending 05/15/21 Fungal Culture, Resulted Pending 05/15/21 Gram Stain - Final, Resulted 05/15/21 Bronchoalveolar Lavage Culture, Resulted Pending 05/13/21 Respiratory Virus Panel (PCR) (ANNA) - Final, Complete Brooklyn Davis MD May 15, 2021 17:37
[2021-05-15] MEDS ORDERED: LevoFLOXacin IV 500 MG in IV 1 EA IV ONE (18:00)
[2021-05-15 19:19] LABS: HEMATOCRIT 29.2 % (36.0-47.0); HEMOGLOBIN 9.1 g/dl (12.0-15.5); MEAN CORPUSCULAR HEMOGLOBIN 30.4 pg (27.0-33.0); MEAN CORPUSCULAR HGB CONC 31.2 g/dl (32.0-36.5); MEAN CORPUSCULAR VOLUME 97.7 fl (80.0-96.0); PLATELET COUNT, AUTOMATED 233 10^3/uL (150-450); RED BLOOD COUNT 2.99 10^6/uL (4.00-5.40); WHITE BLOOD COUNT 7.1 10^3/uL (4.0-10.0)
[2021-05-15] MEDS: ATORVASTATIN 20 MG TAB PO SCH (20:28)
[2021-05-16] VITALS: BP 116/53
[2021-05-16] MEDS: LEVALBUTEROL 1.25 MG/0.5 ML CONCENTRATE NEB NEB SCH ×2 (01:58→07:27)
[2021-05-16 04:00] VITALS: BP 137/63
[2021-05-16 05:36] LABS: CALCIUM LEVEL 8.5 MG/DL (8.8-10.2); CREATININE FOR GFR 1.32 MG/DL (0.55-1.30); GLOMERULAR FILTRATION RATE 41.4 (>39); POTASSIUM SERUM 3.8 MEQ/L (3.5-5.1)
[2021-05-16] MEDS: LEVOTHYROXINE 100MCG TABLET (0.1MG) PO SCH (05:40)
[2021-05-16 08:00] VITALS: BP 140/66
[2021-05-16] MEDS: MOM 30ML SUSPENSION UDC PO SCH (09:00)
[2021-05-16] MEDS: DOCUSATE SODIUM 100MG CAPSULE PO SCH (09:00)
[2021-05-16 09:25] VITALS: BP 140/66
[2021-05-16] MEDS: METOPROLOL SUCC (TopROL XL) 50MG **XL** TAB PO SCH (09:25)
[2021-05-16] MEDS: OMEPRAZOLE 20 MG CAP PO SCH (09:26)
[2021-05-16] MEDS: PANTOPRAZOLE 40MG TAB (PROTONIX) PO SCH (09:26)
[2021-05-16] MEDS: FUROSEMIDE 40 MG TAB PO SCH (09:26)
[2021-05-16] MEDS: SPIRONOLACTONE 25 MG TAB PO SCH (09:29)
--- NOTE | 2021-05-16 09:31 | REP ---
INDICATION: hemoptysis COMPARISON: Multiple examinations dated through 02/08/2021 TECHNIQUE: PA and lateral. FINDINGS: Mediastinum and cardiac silhouette are normal. Vague area of opacity in the perihilar right mid/upper lung zone and subtle right middle lobe atelectasis again noted. Left hemithorax is clear. No effusion. No pneumothorax. IMPRESSION: Vague opacity in the right midlung zone and right middle lobe which may be slightly improved from prior examination. <Electronically signed by Dennis Staley > 05/16/21 0919
--- NOTE | 2021-05-16 10:37 | IPN ---
PROGRESS NOTE DATE: 05/15/2021 SUBJECTIVE: Ms. Ro has just come back from her bronchoscopy with Dr. Garcia. She is awake and alert and in fact is sitting up eating breakfast. Dr. Garcia informs me that he could not see an endobronchial lesion but he did do a bronchial lavage. She has had no hemoptysis since admission. Her vital signs show a T-max of 98.8 with a heart rate that ranges between 66 and 85 and is sinus rhythm, respiratory rate is 17 to 20 without the use of accessory muscles who is 90 to 100% saturated on 10 liters of nasal cannula. Her blood pressure ranges between 168/72 to 123/51. The 10 liters of nasal cannula is probably left over from her bronchoscopy and it will no doubt be weaned. Her intake and output over the past 24 hours has been recorded as 810 in and 1500 out for a negativity of 690 ml. She weighs 85.7 kilos today compared to 83.4 kilos yesterday. OBJECTIVE: LUNGS: She has equal breath sounds on either side. Percussion note was full to the diaphragm. I hear no wheezing. CARDIAC: Without murmurs, clicks, gallops or rubs. I cannot feel her PMI. S1 and S2 are normal. ABDOMEN: Soft and nontender. Bowel sounds are positive. No hepatosplenomegaly. No CVA tenderness. EXTREMITIES: Atkinson pretibial edema on both sides. There is no calf tenderness. No differential swelling of the upper extremities. SKIN: Her skin is warm, dry and perfused without cyanosis or mottling including that of nail beds and knees. NECK: Supple. There is no jugular venous distention. No subcutaneous emphysema. Trachea is midline. HEENT: Mouth shows the mucous membranes to be pink and moist. Lips and commissures without lesions or thrush. Eyes shows the pupils equal and reactive. Extraocular muscles are intact. Sclera are nonicteric. NEUROLOGIC: Cranial nerves II-XII intact. Normal gross motor, gross sensation is intact. Gait is not tested. PSYCHIATRIC: She is awake, alert and oriented x3 with appropriate mood and affect and conversational. Her white count today is 8.8 with a hemoglobin and hematocrit of 10.6 and 34.4. A platelet count is 222,000. There is no differential. Chemistries today shows essentially normal electrolytes with BUN and creatinine of 26 and 1.17 with a glucose of 153 and a calcium of 8.9. Her chest x-ray today done after her bronchoscopy shows a right hemithorax mid lung infiltrate referable to the upper lobe. The costophrenic angle is sharp. The lung is fully expanded to the chest wall. There is no subcutaneous emphysema. Lateral film does not show any posterior infiltrates. IMPRESSION: 1. Hemoptysis. 2. Probable malignancy, pathology results pending. 3. Hypertension. 4. Hypothyroidism. 5. Diabetes. 6. Gout. 7. Lymphedema, chronic. PLAN/DISCUSSION: We will have to await her pathology. Short of any massive hemoptysis there is no longer a role for thoracic surgery, we will therefore withdrawal from the case. We will have to await her pathology results. Because an endobronchial lesion could not be seen whether or not we get a result with the bronchial lavage is unknown. I suspect she will have to go back for a navigational bronchoscopy as well as an EBUS for her mediastinal nodes. Dr. Garcia did confirm that she was bleeding from the anterior segment of the upper lobe. She was admitted because of hemoptysis. While it is unpredictable, I thin the probability is low that she will develop massive hemoptysis. If we do get a positivity of malignancy on the pathology tomorrow, arrangements could certainly be made to expedite her being seen by Oncology and radiation therapy. She is not a surgical candidate as she has spread to the mediastinum other by direct extension or rachel spread.
--- NOTE | 2021-05-16 11:35 | IPNPDOC ---
Subjective Date Seen The patient was seen on 05/16/21. Subjective Chief Complaint/HPI Patient is doing well with absolutely no complaint. She does still cough up occasional speck of blood. Constitutional: Denies: Chills, Fever Eyes: Denies: Pain Skin: Denies: Rash Pulmonary: Reports: Cough, Other Symptoms (Improving hemoptysis.); Denies: Dyspnea Cardiovascular: Denies: Chest Pain, Palpitations, Orthopnea, Paroxysmal Noc. Dyspnea, Edema Gastrointestinal: Denies: Nausea, Vomiting, Abdominal Pain, Diarrhea Neurological: Denies: Weakness Objective Physical Examination General Exam: Positive: Alert, Cooperative, No Acute Distress Eye Exam: Positive: PERRLA; Negative: Sclera icteric ENT Exam: Positive: Atraumatic Neck Exam: Positive: Supple Chest Exam: Positive: Clear to auscultation, Normal air movement Heart Exam: Positive: Rate Normal, Regular Rhythm Abdomen Exam: Positive: Normal bowel sounds, Soft; Negative: Tenderness Extremity Exam: Negative: Clubbing, Cyanosis, Edema Skin Exam: Negative: Rash Neuro Exam: Positive: Normal Speech, Strength at 5/5 X4 ext Psych Exam: Positive: Mental status NL, Memory Intact, Oriented x 3 Assessment /Plan Assessment This is a 72-year-old female with past medical history of diabetes, hypertension, lower extremity lymphedema, hypothyroidism, former tobacco smoker of [id number] smoking history presented to hospital with hemoptysis. 1. Hemoptysis 2. Non-small cell lung cancer of the right upper lobe 3. History is a [id number] smoking history Plan/VTE VTE Prophylaxis Ordered?: Yes Plan -I spent extensive time discussing the diagnosis of non-small cell lung cancer from bronchoalveolar lavage of the right upper lobe with patient and her son over the phone. Currently, they are in the process of discussion among the family we regarding to whether she wants to seek treatment or not. -Recommend oncology involvement. Patient will need staging of the cancer if she wants to get treatment. If there is no distant metastasis on imaging, I will be happy to perform EBUS of the mediastinal lymph nodes. -Can discontinue antibiotic and hold off further work-up of autoimmune disease. VS, I&O, 24H, Fishbone Vital Signs/I&O Vital Signs Date Time Temp Pulse Resp B/P (MAP) Pulse Ox O2 Delivery O2 Flow Rate FiO2 05/16/21 09:25 87 140/66 05/16/21 08:00 98.1 18 93 Room Air 05/15/21 08:46 10.0 I&O- Last 24 Hours up to 6 AM 05/16/21 06:00 Intake Total 1440 ml Output Total 1500 ml Balance -60 ml Laboratory Data 24H LABS Laboratory Tests 2 05/15/21 11:34: Nucleated Red Blood Cells % (auto) 0.0, Anion Gap 6L, Glomerular Filtration Rate 47.6, Calcium Level 8.9, BL-Srs-V-Type Natriuretic Peptide 804H 05/15/21 11:57: Bedside Glucose (Misc Panel) 156H 05/15/21 13:20: Nucleated Red Blood Cells % (auto) 0.0 05/15/21 18:32: Bedside Glucose (Misc Panel) 250H 05/15/21 19:02: Nucleated Red Blood Cells % (auto) 0.0 05/16/21 00:18: Bedside Glucose (Misc Panel) 145H 05/16/21 04:28: Anion Gap 5L, Glomerular Filtration Rate 41.4, Calcium Level 8.5L 05/16/21 05:41: Bedside Glucose (Misc Panel) 113H CBC/BMP Laboratory Tests 05/15/21 11:34 05/15/21 13:20 05/15/21 19:02 05/16/21 04:28 Microbiology Microbiology 05/15/21 Acid Fast Stain - Final, Resulted 05/15/21 Mycobacterial Culture, Resulted Pending 05/15/21 Fungal Smear, Resulted Pending 05/15/21 Fungal Culture, Resulted Pending 05/15/21 Gram Stain - Final, Resulted 05/15/21 Bronchoalveolar Lavage Culture, Resulted Pending 05/13/21 Respiratory Virus Panel (PCR) (ANNA) - Final, Complete GONZALEZ LAYTON MD May 16, 2021 11:34
[2021-05-16 12:00] VITALS: BP 136/63
--- NOTE | 2021-05-16 13:13 | DS.PDOC ---
Discharge Summary General Date of Admission May 14, 2021 at 10:01 Date of Discharge 05/16/2021 Attending Physician: MARY MCKEE MD Specialist/Consultants Involve: GONZALEZ LAYTON MD Specialist/Consultants Involve DR. GALLARDO Discharge Summary PROCEDURES PERFORMED DURING STAY: Bronchoscopy on 05/15/2021 ADMITTING DIAGNOSES: Hemoptysis DISCHARGE DIAGNOSES: New diagnosis of NSCLC, with ongoing characterization Diabetes. Hypertension. Hypothyroidism. Chronic lymphedema which has been present for years in her lower legs COMPLICATIONS/CHIEF COMPLAINT: Hemoptysis. HISTORY OF PRESENT ILLNESS: 72-year-old W with past medical history of diabetes, hypertension, lower extremity lymphedema, hypothyroidism, former tobacco smoker of [id number] smoking history who presented to hospital with hemoptysis after she developed bloody sputum and eventually 2 teaspoon size of fresh and clotted blood hemoptysis the night prior to presentation while she was trying to help her who has Parkinson. She became worried and came to the emergency department for further evaluation. Other than experiencing hemoptysis, she denied any symptoms of fever, chills, night sweat, weight loss, sick contact, shortness of breath, wheezing, chest pain, and denied occupation, environmental or travel/contact history. HOSPITAL COURSE: Upon admission to the hospital, her blood work was unremarkable, but CT angiography of the chest showed a right upper lobe cavitary lesion, located between the takeoff of right upper lobe anterior and posterior segment, as well as enlarged paratracheal and subcarinal lymph node. Pulmonary and thoracic lopez rgery were consulted for further recommendation and work-up and she was admitted to medicine. Ultimately, she had bronchoscopy done by pulm on 07/15/2021 and diagnosis of non-small cell lung cancer was made from bronchoalveolar lavage of the right upper lobe. Dr. Layton discussed with the patient and her son who was over the phone, and at this time, the family is in the process of discussion about next steps but agreed to prompt hem/onc involvment. I spoke with Dr. Ames who facilitated a prompt outpatient follow up/referral to first appointment shortly for staging of the cancer and discussion if she wants to get treatment. per Dr. Layton, if there is no distant metastasis on imaging, pulmonary would be happy to perform EBUS of the mediastinal lymph nodes and he recommended discontinuation of empiric antibiotics and hold off further work-up of autoimmune disease. her hemoptysis appears to have resolved/ slowed down and has not had further reports of bloody sputum but will have prompt heme/onc follow up with potential referral to rad/onc if indicated. DISCHARGE MEDICATIONS: Please see below. ALLERGIES: Please see below. PHYSICAL EXAMINATION ON DISCHARGE: VITAL SIGNS: Please see below. CONSTITUTIONAL: No acute distress, resting comfortably, AAO x 3 EYES: PERRLA, EOM intact HENT, MOUTH: Normocephalic, atraumatic, moist mucous membranes NECK: SUPPLE, no JVD, no lymphadenopathy, no carotid bruit CV: Regular rate and rhythm, S1S2 normal, no murmurs/rubs/gallops RESPIRATORY: Clear to auscultation bilaterally, no rales/rhonchi/wheezes GI: BS positive in 4 quadrants, soft, nontender, nondistended, no rebound or guarding, no organomegaly MUSCULOSKELETAL: Normal ROM of extremities. No cyanosis, clubbing, joint deformity. B/l lower ext lymphedema, no pitting extremity edema. Lipoma on left shoulder INTEGUMENTARY: Intact, no rashes, no lesions, no erythema NEUROLOGIC: Cranial Nerves II-XII are intact, no focal deficits LABORATORY DATA: Please see below IMAGING: Bronchoscopy 05/15/21: Hemoptysis coming from right upper lobe anterior segment. 05/13/2021: CTA chest: PULMONARY ARTERIES: The main pulmonary trunk is not dilated above normal range. Enhancement within the pulmonary arteries is preserved bilaterally through the distal segmental levels, without evidence of intraluminal, acute appearing, occlusive pulmonary emboli. There is luminal irregularity and narrowing of anterior right upper lobe segmental pulmonary arterial branch (image 77, series 401) which appears to be secondary to extrinsic compression/invasion, discussed below in greater detail, and not secondary to pulmonary embolus. HEART AND AORTA: Cardiac size is borderline. No pericardial effusion. There is some calcification at the mitral valve and aortic valve. Coronary arterial calcifications are noted. No thoracic aortic aneurysm or dissection. There is calcific thoracic aortic atherosclerosis. Visualized proximal great vessels within the superior mediastinum are atherosclerotic but appear to be patent. There is atherosclerosis within visualized upper most abdomen, including severe appearing celiac axis stenosis with poststenotic dilation and moderate to severe appearing atherosclerotic disease at the origin of the superior mesenteric artery. Remaining vasculature within the abdomen is not included on this exam. MEDIASTINUM: No mediastinal soft tissue gas. The visualized thyroid gland is slightly heterogeneous. Evaluation is limited by beam hardening artifact. No mediastinal hematoma. Trace amount of fluid is seen within the pericardial recesses. Mildly enlarged paratracheal, subcarinal and right hilar lymph nodes are seen. Malignant nodes cannot be excluded. Clinical correlation is advised. LUNGS: The lungs are symmetric in expansion. There is a spiculated, cavitary right upper lobe perihilar pulmonary parenchymal mass measuring approximately 4.3 cm in maximal dimension worrisome for malignancy. Centrally necrotizing infection could have this appearance but is felt less likely. Clinical correlation is advised. This parenchymal mass extends to the right pulmonary hilum. There is occlusion of right upper lobe anterior segmental/subsegmental bronchi and extrinsic compression or invasion of an anterior right upper lobe segmental pulmonary artery. There is luminal irregularity and wall thickening of the right upper lobe bronchus. Invasion of the right mediastinum cannot be excluded. Soft tissue diagnosis is advised. There is a 6 mm right lower lobe pulmonary nodule (image 73, series 401) of uncertain significance but metastatic disease/malignancy would be a consideration. A few scattered subpleural opacities are seen bilaterally of uncertain significance, possibly atelectasis and/or parenchymal scarring. Follow-up is advised to confirm resolution/stability. Mild focal ground-glass opacities are seen within the right lower lobe which could be correlated for mild interstitial pneumonitis. There is no pneumothorax or pleural effusion. UPPER ABDOMEN: No free air or free fluid within the visualized upper most abdomen. 5 mm hypodense left hepatic lobe anterior lesion noted of uncertain significance. 5 mm suspected hyperdense lesion at the upper pole of the right kidney (image 79, series 403). Hypodense lesions at the upper pole of the visualized right kidney may represent cystic changes but the kidney is incompletely assessed. Consider nonemergent formal evaluation of the abdomen for more complete assessment. MSK AND BODY WALL: There is a slightly spiculated left lateral chest wall subcutaneous 14 mm nodule (image 147, series 401) of uncertain significance. Neoplastic lesion or lymph node cannot be excluded with this appearance. Clinical follow-up is advised. This lesion is likely palpable. The bones appear slightly demineralized. Degenerative changes of the spine noted. IMPRESSION: No evidence for acute pulmonary emboli. There is a 4.3 cm spiculated cavitary right upper lobe pulmonary parenchymal mass, worrisome for malignancy. There appears to be extrinsic compression or invasion of the right upper lobe anterior segmental pulmonary artery as well as bronchial involvement. Pulmonary findings discussed above in detail. Indeterminate hepatic lesion and right renal lesion. Indeterminate left lateral chest wall nodule. Nonemergent recommendations discussed above. Other nonemergent findings discussed above. PROGNOSIS: Guarded, pending cancer staging and potential treatment ACTIVITY: As tolerated DIET: consistent carb DISCHARGE PLAN: Home with services, prompt onc follow up, PCP within 7d DISPOSITION: Home with services DISCHARGE INSTRUCTIONS: Home with services, prompt onc follow up, PCP within 7d ITEMS TO FOLLOWUP ON ON OUTPATIENT: hemoptysis NSCLC oncology follow up PCP follow up DISCHARGE CONDITION: Stable TIME SPENT ON DISCHARGE: 46 minutes. Vital Signs/I&Os Vital Signs Date Time Temp Pulse Resp B/P (MAP) Pulse Ox O2 Delivery O2 Flow Rate FiO2 05/16/21 09:25 87 140/66 05/16/21 08:00 98.1 18 93 Room Air 05/15/21 08:46 10.0 I&O- Last 24 Hours up to 6 AM 05/16/21 05:59 Intake Total 1590 ml Output Total 1500 ml Balance 90 ml Laboratory Data Labs 24H Laboratory Tests 2 05/15/21 13:20: Nucleated Red Blood Cells % (auto) 0.0 05/15/21 18:32: Bedside Glucose (Misc Panel) 250H 05/15/21 19:02: Nucleated Red Blood Cells % (auto) 0.0 05/16/21 00:18: Bedside Glucose (Misc Panel) 145H 05/16/21 04:28: Anion Gap 5L, Glomerular Filtration Rate 41.4, Calcium Level 8.5L 05/16/21 05:41: Bedside Glucose (Misc Panel) 113H CBC/BMP Laboratory Tests 05/15/21 13:20 05/15/21 19:02 05/16/21 04:28 FSBS Laboratory Tests Test 05/15/21 18:32 05/16/21 00:18 05/16/21 05:41 Range/Units Bedside Glucose (Misc Panel) 250 145 113 83-110 MG/DL Microbiology Microbiology 05/15/21 Acid Fast Stain - Final, Resulted 05/15/21 Mycobacterial Culture, Resulted Pending 05/15/21 Fungal Smear, Resulted Pending 05/15/21 Fungal Culture, Resulted Pending 05/15/21 Gram Stain - Final, Resulted 05/15/21 Bronchoalveolar Lavage Culture, Resulted Pending 05/13/21 Respiratory Virus Panel (PCR) (ANNA) - Final, Complete Discharge Medications Scheduled Atorvastatin Calcium (Atorvastatin Calcium) 20 Mg Tablet, 20 MG PO QHS, (Reported) Ergocalciferol (Vitamin D2) (Vitamin D2) 50,000 Units Cap, 50,000 UNIT PO Q2WK, (Reported) Furosemide (Furosemide) 40 Mg Tablet, 40 MG PO DAILY, (Reported) Levothyroxine Sodium (Levothyroxine Sodium) 100 Mcg Tablet, 100 MCG PO DAILY, (Reported) Metformin HCl (Metformin HCl ER) 500 Mg Tab.er.24h, 1,000 MG PO BID, (Reported) Metoprolol Succinate (Metoprolol Succinate) 50 Mg Tab.er.24h, 50 MG PO DAILY, (Reported) Omeprazole (Omeprazole) 40 Mg Capsule.dr, 40 MG PO DAILY, (Reported) Potassium Chloride (Potassium Chloride) 20 Meq Tab.er.prt, 20 MEQ PO BID, (Reported) Spironolactone (Spironolactone) 25 Mg Tablet, 50 MG PO DAILY, (Reported) allopurinoL (allopurinoL) 300 Mg Tablet, 300 MG PO Q2D, (Reported) Allergies Coded Allergies: Penicillins (Verified Allergy, Unknown, 09/23/19) MARY MCKEE MD May 16, 2021 13:13
[2021-05-16] MEDS ORDERED: LevoFLOXacin IV 250 MG in IV 1 EA IV SCH (18:00)
== END 2021-05-16 14:12 | disposition home health service (06) | DRG 181 ==
LOC: M ED 18:06 → M ED INP 05-14 10:01 → ENRESERV 05-14 12:10 → M PCU 05-14 15:45
PROVIDERS: ADMIT Internal Medicine; ATTEND Internal Medicine
PROC: 0B9C8ZX Drainage of Right Upper Lung Lobe, Via Natural or Artificial Opening Endoscopic, Diagnostic (ICD-10-PCS; principal; 2021-05-15 07:30)
DX: C34.11 Malignant neoplasm of upper lobe, right bronchus or lung (principal); R04.2 Hemoptysis; E11.9 Type 2 diabetes mellitus without complications; I12.9 Hypertensive chronic kidney disease with stage 1 through stage 4 chronic kidney disease, or unspecified chronic kidney disease; N18.2 Chronic kidney disease, stage 2 (mild); E03.9 Hypothyroidism, unspecified; I89.0 Lymphedema, not elsewhere classified; Z87.891 Personal history of nicotine dependence; Z79.899 Other long term (current) drug therapy; Z88.0 Allergy status to penicillin; K21.9 Gastro-esophageal reflux disease without esophagitis; M10.9 Gout, unspecified; E55.9 Vitamin D deficiency, unspecified

== ENCOUNTER → 2021-05-25 | Outpatient (CLI) | payer MEDICARE, BC ==
[~2021-05-25] MED LIST changes: +ALLO300T2 PO; +LIDOCAINE 1% MDV 20ML VIAL As Ordered ONE; +MIDAZOLAM INJ 2MG/2ML VIAL (J2250 PER 1MG) As Ordered ONE; +NS 1,000 ML IV SCH; +VANCOMYCIN 1000MG/20ML VIAL As Ordered ONE; +VANCOMYCIN HCL 1,000 MG, VIAL MATE ADAPTER 1 EACH in NS 250 ML IV ONE; +diphenhydrAMINE 50MG/ML VIAL (J1200) As Ordered ONE; +fentaNYL 100 MCG/2 ML INJECTION (J3010) As Ordered ONE
--- NOTE | 2021-05-25 09:47 | IRHP ---
[facility] IR Pre-Procedure H & P General Date of Service: May 25, 2021 Procedure: Same Day Surgery Interval History and Physical I have seen the patient and reviewed last H & P performed within 30 days. There is no significant interval change. History of Present Illness Chief Complaint The patient is a 80-year-old female admitted with a reason for visit of Rt Lung Mass. PRE-PROCEDURE DIAGNOSIS: Lung cancer HEART: Normal rate. LUNGS: Normal breathing at rest. ASA Classification ASA Classification: III-Severe systemic dis. Mallampati Score: II NPO: Yes Problems with prior sedation: No Obstructive Sleep Apnea: No Plan moderate sedation Allergies Coded Allergies: Penicillins (Verified Allergy, Unknown, 09/23/19) Home Medications Scheduled Atorvastatin Calcium (Atorvastatin Calcium), 20 MG PO QHS, (Reported) Ergocalciferol (Vitamin D2) (Vitamin D2), 50,000 UNIT PO Q2WK, (Reported) Furosemide (Furosemide), 40 MG PO DAILY, (Reported) Levothyroxine Sodium (Levothyroxine Sodium), 100 MCG PO DAILY, (Reported) Metformin HCl (Metformin HCl ER), 1,000 MG PO BID, (Reported) Metoprolol Succinate (Metoprolol Succinate), 50 MG PO DAILY, (Reported) Omeprazole (Omeprazole), 40 MG PO DAILY, (Reported) Potassium Chloride (Potassium Chloride), 20 MEQ PO BID, (Reported) Spironolactone (Spironolactone), 50 MG PO DAILY, (Reported) allopurinoL (allopurinoL), 300 MG PO Q2D, (Reported) VS, I&O, 24H, Fishbone Vital Signs/I&O Vital Signs Date Time Temp Pulse Resp B/P (MAP) Pulse Ox O2 Delivery O2 Flow Rate FiO2 05/25/21 08:54 97.2 79 18 100 Room Air KINJAL PURCELL MD May 25, 2021 09:47
[2021-05-25 12:17] VITALS: BP 145/65
--- NOTE | 2021-05-25 15:11 | IRPON ---
IR Postoperative Note Date Of Procedure: May 25, 2021 Time Of Procedure: 15:11 IR Postoperative Note IR Ultrasound and fluoroscopy guided port placement IR Ultrasound of the neck. IR Moderate sedation. Clinical indication: Lung cancer. Physician: Dr. Denise. Procedure: The patient was advised of the benefits, risks, and alternatives of the procedure and informed consent was obtained. A time-out was performed with verification of the patient's name, MRN, site of procedure and type of procedure to be performed. The patient was positioned in the supine position on the angiographic table. The site was prepped and draped in the usual sterile fashion. Moderate sedation was performed by the physician including the presence of an independent trained RN who assisted and monitored the patient's level of consciousness and physiologic status. Following the administration of fentanyl and Versed , the physician spent 45 minutes of continuous face to face time with the patient. Ultrasound of the neck reveals a patent and compressible right internal jugular vein. A sap technical developer radiograph reveals no gross abnormality. The neck and anterior chest wall were anesthetized with lidocaine. The right internal jugular vein was accessed using a microintroducer needle under ultrasound guidance, via a lateral approach. An 018 wire was advanced into the superior vena cava, the needle was removed and a microsheath was placed. An Amplatz wire was then passed into the inferior vena cava. An incision at the internal jugular vein access site and anterior chest wall were made using a scalpel. An incision was made at the anterior chest wall. A small pocket was created using a combination of blunt and sharp dissection. A tunneling device was then used to pass the catheter from the pocket to the neck puncture site. An 8- Micronesian Angio [email or web address] Smart power port was then positioned in the pocket. The catheter was then measured and cut. The introducer sheath was exchanged for a peel-away sheath. The catheter was passed through the peel-away sheath into the internal jugular vein and the peel-away sheath was removed. The port tip was positioned at the cavoatrial junction. The port was then accessed with a Cm needle. The port flushes and aspirates well. The puncture site in the neck was closed. The chest wall incision was then closed with 2-0 Vicryl and 4-0 Monocryl. Glue and Steri- Strips were applied. A sterile dressing was then applied. The patient tolerated the procedure well and was returned to the PRU in stable condition. Estimated blood loss: <5 ml. Complications: None. Conclusion: 1. Successful placement of an 8-Micronesian Angio dynamics Smart power port via the right internal jugular vein. The port is ready for immediate use. 2. Patient to follow up in IR clinic in 2 weeks. Thank you for this referral. KINJAL DENISE MD May 25, 2021 15:11
== END ==
LOC: M IRPRO 08:48
PROVIDERS: ATTEND Specialist
DX: C34.90 Malignant neoplasm of unspecified part of unspecified bronchus or lung (principal); Z88.0 Allergy status to penicillin; Z79.84 Long term (current) use of oral hypoglycemic drugs; Z79.890 Hormone replacement therapy
CPT/HCPCS: 36561; 99152; 99153; C1769; C1788; C1894; J1200; J1642; J1644; J2250; J3010; J3370

== ENCOUNTER → 2021-06-05 | Outpatient (CLI) | payer MEDICARE, BC ==
[~2021-06-05] MED LIST changes: -LIDOCAINE 1% MDV 20ML VIAL As Ordered ONE; -MIDAZOLAM INJ 2MG/2ML VIAL (J2250 PER 1MG) As Ordered ONE; -NS 1,000 ML IV SCH; -VANCOMYCIN 1000MG/20ML VIAL As Ordered ONE; -VANCOMYCIN HCL 1,000 MG, VIAL MATE ADAPTER 1 EACH in NS 250 ML IV ONE; -diphenhydrAMINE 50MG/ML VIAL (J1200) As Ordered ONE; -fentaNYL 100 MCG/2 ML INJECTION (J3010) As Ordered ONE
--- NOTE | 2021-06-06 09:17 | REP ---
INDICATION: STAGING RIGHT UPPER LOBE LUNG CANCER C34.11. COMPARISON: Prior CT scan of the chest 05/13/2021. There are no prior PET CTs for comparison. TECHNIQUE: After the intravenous administration of 8.99 mCi of FDG 18 triplane whole-body PET-CT was performed from the skull base to the mid thigh. FINDINGS: The spiculated cavitary lesion seen on the prior CT in the right upper lobe which abuts the upper right hilar region is hypermetabolic with a maximal SUV value of 6.61. There is a focus of hypermetabolism seen in the anterior tip of the right subscapularis muscle with a maximal SUV value of 7.66. There is bilateral diffuse shoulder girdle muscular hypermetabolic activity. This is all likely secondary to insufficient post injection resting. Certainly, right shoulder rotator cuff disease could at least in part be responsible for the finding. There are no other areas of abnormal hypermetabolic activity seen in the neck, chest, abdomen, or pelvis. IMPRESSION: 1. The cavitary spiculated right lung mass is hypermetabolic as described above. 2. Other findings as described above. <Electronically signed by Erik Brown > 06/06/21 [id number]
== END ==
LOC: M PLARAD 10:40
PROVIDERS: ATTEND Specialist
DX: C34.11 Malignant neoplasm of upper lobe, right bronchus or lung (principal)
CPT/HCPCS: 78815; A9552

== ENCOUNTER → 2021-06-13 | Outpatient (POV) | payer MEDICARE, BC ==
[~2021-06-13] VITALS: Ht 157.5 cm; Wt 77.2 kg
[2021-06-13 08:05] VITALS: BP 132/62
--- NOTE | 2021-06-15 12:33 | IRPN ---
[facility] IR Progress Note IR Progress Note DATE: Jun 13, 2021 FOLLOW-UP: Status post port placement. Patient reports doing well. No fevers, chills, pain or discharge from site. ON EXAMINATION: Port site healing well. Glue and Steri-Strips are in place. No redness, swelling or fluctuance. IMPRESSION: Doing well status post port placement. Glue and Steri-Strips will fall off by themselves. No further follow-up scheduled unless initiated by patient and/or referring provider. Thank you for this referral Allergies Coded Allergies: Penicillins (Verified Allergy, Unknown, 09/23/19) VS,Fishbone, I+O VS, Fishbone, I+O Vital Signs Date Time Temp Pulse Resp B/P (MAP) Pulse Ox O2 Delivery O2 Flow Rate FiO2 06/13/21 08:05 97.0 70 18 132/62 (85) 100 KINJAL PURCELL MD Jun 15, 2021 12:33
== END ==
LOC: M IRPOV 07:59
PROVIDERS: ATTEND Radiology Diagnostic Radiology
DX: Z45.2 Encounter for adjustment and management of vascular access device (principal)

== ENCOUNTER → 2021-06-22 | Outpatient (CLI) | payer MEDICARE, BC ==
[~2021-06-22] MED LIST changes: +LIDOCAINE 1% MDV 20ML VIAL As Ordered ONE; +MIDAZOLAM INJ 2MG/2ML VIAL (J2250 PER 1MG) As Ordered ONE; +flumazeniL 0.5 MG/5 ML VIAL As Ordered ONE
--- NOTE | 2021-06-22 10:31 | REP ---
INDICATION: I LOGIC CT CHEST FOR NAVIGATION COMPARISON: 05/13/2021 TECHNIQUE: Axial noncontrast images from the thoracic inlet to the upper abdomen with coronal and sagittal reformations. This CT examination was performed using the following dose reduction techniques: Automated exposure control, adjustment of mA and/or kv according to the patient's size, and use of iterative reconstruction technique. FINDINGS: The complex multi-septated cavitary appearing lesion extending from the suprahilar region to the right upper lobe with suspected central soft tissue component and spiculated margination appears relatively unchanged. Stable 9 mm nodule in the periphery of the apical right lower lobe (image 42) as well as suspected mediastinal adenopathy are also identified and unchanged. Underlying chronic emphysematous changes with mild bronchiectasis and scattered scarring remains stable. No effusion. No pneumothorax. Tracheobronchial tree is patent. Mediastinum demonstrates atherosclerotic changes to the thoracic aorta and coronary arteries along with mild cardiomegaly unchanged. Hiatal hernia at the gastroesophageal junction noted. Surrounding musculoskeletal structures without acute osseous abnormality. [id number] identified with tip in the SVC. IMPRESSION: 1. Complex septated cavitary lesion in the medial right upper lobe with soft tissue component along with adenopathy and 9 mm satellite nodule in the apical right lower lobe again identified and unchanged. 2. No new acute mediastinal or pleuroparenchymal process appreciated. <Electronically signed by Dennis Staley > 06/22/21 [id number]
--- NOTE | 2021-06-22 11:22 | REP ---
INDICATION: RT UPPER LUNG MASS. COMPARISON: None. TECHNIQUE: The procedure was performed under the direct supervision of Dr. Veronica. Patient has a history of a cavitary spiculated right lung mass which was hypermetabolic on a previous PET scan dated 06/05/2021. Dr. Sim was consulted for this case as the mass abuts the upper right hilar region in close proximity to vessels. After reviewing the films with Dr. Sim he decided that, because of the location of the mass, it was too risky for percutaneous biopsy. Dr. Sim then set the patient up for consultation with a nurse ob. The patient had a CT scan of the chest today with [employer] to aid with a navigational bronchoscopy. Dr. Sim spoke with the patient and explained all of this to her. FINDINGS: None IMPRESSION: The patient will be referred to a nurse ob for navigational bronchoscopy. <Electronically signed by Ruddy Gonsalez > 06/22/21 [id number] <Electronically signed by Cal Veronica > 06/22/21 [id number]
== END ==
LOC: M IRPRO 08:17
PROVIDERS: ATTEND Specialist
DX: D47.2 Monoclonal gammopathy (principal); R91.8 Other nonspecific abnormal finding of lung field; Z53.8 Procedure and treatment not carried out for other reasons
CPT/HCPCS: 71250; J2250

== ENCOUNTER → 2021-07-10 | Outpatient (CLI) | payer MEDICARE, BC ==
[~2021-07-10] MED LIST changes: +FLUTISP; -LIDOCAINE 1% MDV 20ML VIAL As Ordered ONE; -MIDAZOLAM INJ 2MG/2ML VIAL (J2250 PER 1MG) As Ordered ONE; -flumazeniL 0.5 MG/5 ML VIAL As Ordered ONE
[2021-07-10 15:33] LABS: BASO # 0.1 10^3/uL (0.0-0.2); EOS # 0.2 10^3/uL (0.0-0.5); EOS % 2.5 % (0.0-3.0); HEMATOCRIT 32.8 % (36.0-47.0); HEMOGLOBIN 10.3 g/dl (12.0-15.5); LYMPH # 1.1 10^3/uL (1.5-5.0); LYMPH % 17.7 % (24.0-44.0); MEAN CORPUSCULAR HEMOGLOBIN 29.9 pg (27.0-33.0); MEAN CORPUSCULAR HGB CONC 31.4 g/dl (32.0-36.5); MEAN CORPUSCULAR VOLUME 95.1 fl (80.0-96.0); MONO # 0.5 10^3/uL (0.0-0.8); MONO % 8.9 % (2.0-8.0); NEUTROPHILS # 4.2 10^3/uL (1.5-8.5); NEUTROPHILS % 69.6 % (36.0-66.0); PLATELET COUNT, AUTOMATED 246 10^3/uL (150-450); RED BLOOD COUNT 3.45 10^6/uL (4.00-5.40); WHITE BLOOD COUNT 6.1 10^3/uL (4.0-10.0)
[2021-07-10 15:36] LABS: CREATININE FOR GFR 1.14 MG/DL (0.55-1.30); GLOMERULAR FILTRATION RATE 49.1 (>39); POTASSIUM SERUM 4.8 MEQ/L (3.5-5.1)
[2021-07-10 15:42] LABS: INR 1.08; PROTHROMBIN TIME 14.4 SECONDS (12.7-14.5)
[2021-07-10 15:43] LABS: PARTIAL THROMBOPLASTIN TIME 30.2 SECONDS (25.9-37.0)
== END ==
LOC: M PLALAB 13:40
PROVIDERS: ATTEND Internal Medicine Pulmonary Disease
DX: C34.11 Malignant neoplasm of upper lobe, right bronchus or lung (principal)

== ENCOUNTER → 2021-07-10 | Outpatient (CLI) | payer MEDICARE, BC | LOC: M LABSMTC 13:10 | PROVIDERS: ATTEND Anesthesiology | DX: Z01.812 Encounter for preprocedural laboratory examination (principal); C34.11 Malignant neoplasm of upper lobe, right bronchus or lung; Z20.822 Contact with and (suspected) exposure to COVID-19 | CPT/HCPCS: 36415; 80048; 85025; 85610; 85730; U0002 ==

== ENCOUNTER 2021-07-12 08:08 | Day surgery (SDC) | payer MEDICARE, BC ==
[~2021-07-12] VITALS: Ht 157.5 cm; Wt 78.0 kg
[~2021-07-12 08:08] MED LIST changes: +ALBUTEROL SULFATE 2.5 MG/0.5 ML INH NEB SOLN INH ONE; -FLUTISP; +LIDOCAINE 4% INJ 5ML AMP NEB ONE; +LR 1,000 ML IV ONE; -OMEP-221 PO; +OMEP40CA5 PO; +POTA-151 PO; -POTA20TA6 PO
[2021-07-12] MEDS ORDERED: FLUTISP (09:31)
[2021-07-12] MEDS ORDERED: LIDOCAINE 1% SDV 30ML VIAL As Ordered ONE (09:49)
[2021-07-12] MEDS ORDERED: LIDOCAINE 4% TOPICAL SOLN 50 ML BTL As Ordered ONE (09:50)
[2021-07-12] MEDS ORDERED: LIDOCAINE VISCOUS 2% SOLN 15ML UDC As Ordered ONE (09:50)
[2021-07-12] MEDS ORDERED: THROMBIN SOLN 5,000 UNITS VIAL As Ordered ONE (09:50)
[2021-07-12] MEDS ORDERED: CETACAINE SPRAY 5GM As Ordered ONE (09:51)
[2021-07-12] MEDS ORDERED: propofoL 200 MG/20 ML VIAL As Ordered ONE (09:52)
[2021-07-12] MEDS ORDERED: LIDOCAINE 2% 100MG/5ML SDV (FOR ANES.) As Ordered ONE (09:52)
[2021-07-12] MEDS ORDERED: ROCURONIUM BROMIDE 50 MG/5 ML VIAL As Ordered ONE (09:52)
[2021-07-12] MEDS ORDERED: MIDAZOLAM INJ 2MG/2ML VIAL (J2250 PER 1MG) As Ordered ONE (09:53)
[2021-07-12] MEDS ORDERED: fentaNYL 100 MCG/2 ML INJECTION As Ordered ONE (09:53)
[2021-07-12] MEDS ORDERED: ePHEDrine SULFATE 25 MG/5 ML(5MG/ML) SYRINGE As Ordered ONE (10:30)
[2021-07-12] MEDS ORDERED: GLYCOPYRROLATE INJ 0.2 MG/ML 2 ML VIAL As Ordered ONE (10:32)
[2021-07-12] MEDS ORDERED: SUGAMMADEX SODIUM 500 MG/5 ML VIAL (BRIDION) As Ordered ONE (10:46)
[2021-07-12] MEDS ORDERED: ONDANSETRON 4MG/2ML VIAL As Ordered ONE (10:46)
[2021-07-12] MEDS ORDERED: dexameTHASONE 4 MG/ML 1ML VIAL (J1100 PER 1MG) As Ordered ONE (10:46)
[2021-07-12] MEDS ORDERED: EPINEPHrine INJ 1 MG/ML 1ML AMP As Ordered ONE (10:53)
[2021-07-12] MEDS ORDERED: EPINEPHrine 1MG/10ML SYRINGE 1.5IN As Ordered ONE (10:53)
[2021-07-12] MEDS ORDERED: LR 1,000 ML IV SCH (11:20)
[2021-07-12] MEDS ORDERED: ONDANSETRON 4MG/2ML VIAL IV PRN (11:20)
[2021-07-12] MEDS ORDERED: fentaNYL 100 MCG/2 ML INJECTION IV PRN (11:20)
[2021-07-12] MEDS ORDERED: oxyCODONE 5MG TAB PO PRN (11:20)
[2021-07-12] MEDS ORDERED: HumaLOG INSULIN (NovoLOG) PER UNIT SC ONE (12:00)
[2021-07-12 12:30] VITALS: BP 148/73
[2021-08-18] MEDS ORDERED: CLIN-250 (09:50)
[2021-09-04] MEDS ORDERED: PROC10TA5 PO ×2 (12:13→13:21)
[2021-09-04] MEDS ORDERED: ONDA-84 PO ×2 (12:13→13:21)
== END 2021-07-12 13:10 | disposition home or self-care (01) ==
LOC: M SDC 08:08
PROVIDERS: ATTEND Internal Medicine Pulmonary Disease
DX: C34.11 Malignant neoplasm of upper lobe, right bronchus or lung (principal); E11.9 Type 2 diabetes mellitus without complications; I10 Essential (primary) hypertension; E78.5 Hyperlipidemia, unspecified; Z87.891 Personal history of nicotine dependence; K21.9 Gastro-esophageal reflux disease without esophagitis; M10.9 Gout, unspecified; Z79.899 Other long term (current) drug therapy; E03.9 Hypothyroidism, unspecified; Z88.0 Allergy status to penicillin
CPT/HCPCS: 31629; 31652; 71045; 88173; 88305; 88341; 88342; J0171; J1100; J2250; J2405; J3010; S2900

== ENCOUNTER → 2021-07-24 | Outpatient (CLI) | payer MEDICARE, BC ==
[~2021-07-24] MED LIST changes: -ALBUTEROL SULFATE 2.5 MG/0.5 ML INH NEB SOLN INH ONE; +FLUTISP; -LIDOCAINE 4% INJ 5ML AMP NEB ONE; -LR 1,000 ML IV ONE; +OMEP-221 PO; -OMEP40CA5 PO; -POTA-151 PO; +POTA20TA6 PO
--- NOTE | 2021-07-24 16:56 | RADONC.CN ---
Radiation Oncology Hx/Consult Radiation Oncology Consult Date of Service: Jul 24, 2021 Pt Identifier Evette Ro is a 80 year old female former smoker with a recently diagnosed RUL NSCLC [id number] stage IIA, PD-L1 100%. She is seen today for discussion of chemoradiation as an alternative to surgical resection. Diagnosis/Treatment History Oncologic History February 2021-Onset of hemoptysis 05/13/21-Single episode of moderate hemoptysis which prompted ER visit, CT angio chest showed a RUL nodule with endobronchial invasion ~ 4 cm 05/15/21-Bronchoscopy with lavage which was negative 06/05/21-PET-CT showing avidity in the RUL nodule, no distant mets or regional adenopathy 07/12/21-EBUS and biopsy showing NSCLC adenocarcinoma PD-L1 100% other markers negative. LN negative PFTs 06/27/21 FVC 1.8L FEV1 1.8L FEV1/FVC 100% Technique questionable Interval History Feels generally well. Occasional mild hemoptysis which is scant in quantity. Has a chronic cough. No real SOB, or OLIVARES. Appetite low but weight stable. Uses a wa lker. Past Medical History: DM2 GERD Gout HPL HTN CKD MGUS Hypothyroidism Past Surgical History: Cholecystectomy Carpal tunnel syndrome Family History: Father colon cancer Brother leukemia Daughter breast cancer Social History: 30 pack year former smoker Drinks 1 drink 3 days per week Allergies / Meds Allergies: Coded Allergies: Penicillins (Verified Allergy, Unknown, 09/23/19) Home Meds Reported Medications allopurinoL (allopurinoL) 300 Mg Tablet, 300 MG PO Q2D 05/14/21 Omeprazole (Omeprazole) 40 Mg Capsule.dr, 40 MG PO DAILY 09/14/19 Ergocalciferol (Vitamin D2) (Vitamin D2) 50,000 Units Cap, 33616 UNIT PO Q2WK 09/14/19 Metformin HCl (Metformin HCl ER) 500 Mg Tab.er.24h, 1000 MG PO BID 09/14/19 Potassium Chloride (Potassium Chloride) 20 Meq Tab.er.prt, 20 MEQ PO BID 09/14/19 Levothyroxine Sodium (LEVOTHYROXINE SODIUM) 100 Mcg Tablet, 100 MCG PO DAILY 09/14/19 Atorvastatin Calcium (Atorvastatin Calcium) 20 Mg Tablet, 20 MG PO QHS 09/14/19 Metoprolol Succinate (Metoprolol Succinate) 50 Mg Tab.er.24h, 50 MG PO DAILY 09/14/19 Spironolactone (Spironolactone) 25 Mg Tablet, 50 MG PO DAILY 09/14/19 Furosemide (Furosemide) 40 Mg Tablet, 40 MG PO DAILY 09/14/19 Discontinued Reported Medications Fluticasone Propionate (Fluticasone Propionate) 16 Gm Round O.susp 07/12/21 Review of Systems Constitutional: Reports: Fatigue; Denies: Weight Loss, Normal appetite Eyes: Denies: Pain HEENT: Denies: Head Aches Skin: Denies: Rash Pulmonary: Reports: Cough; Denies: Dyspnea Cardiovascular: Reports: Edema; Denies: Chest Pain Gastrointestinal: Denies: Abdominal Pain Musculoskeletal: Denies: Neck pain, Back pain, Midthoracic pain Neurological: Denies: Weakness, Numbness Psych: Reports: Mood Normal Vital Signs Wt 177 lbs T 96 P 71 RR 17 BP 124/77 O2 97% Pain 6 (right knee chronic) Fatigue 1 General Exam: Alert, Cooperative, No Acute Distress Eye Exam: PERRLA, EOMI ENT EXAM: Atraumatic Neck Exam: Supple Chest Exam: Clear to auscultation, Normal air movement Heart Exam: Rate Normal, Regular Rhythm Abdomen Exam: Soft Extremity Exam: Edema (1+ to knee) Skin Exam: Nl turgor and temperature Neuro Exam: Normal Gait, Normal Speech, Cranial Nerves 3-12 NL Psych Exam: Mental status NL Diagnostic and Laboratory Diagnostic Review Radiologic images, relevant labs and pathology reports were personally reviewed and discussed with Ms. Ro. Assessment and Plan Impression Ms. Ro is a 80 year old female former smoker with a recently diagnosed RUL NSCLC [id number] stage IIA, PD-L1 100%. She is seen today for discussion of chemoradiation as an alternative to surgical resection. Stage RUL NSCLC [id number] stage IIA Performance Status ECOG 1 Plan We had an extensive discussion with Ms. Ro regarding the diagnosis at hand and available therapeutic options. She has a surgical consult with Dr. Larry on 07/26/21. Discussed that if she is deemed operable that she would be best served with surgical resection. If she is not a surgical candidate, then I would offer chemoradiation followed by systemic therapy per Dr. Ames. For RT I would give 66 Gy in 33 fractions with VMAT and daily CBCT to respect lung V20 and spare the mediastinal structures. She is not a good candidate for SBRT or hypofractionated RT given the central location and seeming large extent of endobronchial disease, which increases her risk of toxicity. She also has a small nodule in the RLL which may be synchronous disease, it was too small for PET characterization. She will alert us to the decision regarding surgery. We discussed the logistics of receiving radiation therapy in detail including the need for a 1-time planning session. We discussed the toxicities of RT including fatigue, pneumonitis and late fibrosis. After discussing the risks, benefits and alternatives to radiation therapy, Ms. Ro was amenable to pursuing radiotherapy. All questions were answered to the patient's satisfaction. We instructed the patient that if there were any questions,concerns or changes in clinical status in the interim to contact us. Recommendations Recommend surgery if offered If not a surgical candidate, then chemoradiation 66 Gy in 33 fractions with VMAT and daily CBCT Patient to alert us of the decision Billing Statement Total time of [49] minutes was spent preparing for the visit [3], obtaining HPI [9], examining the patient [3], reviewing diagnostic tests [7], discussing management options [16], coordinating care [2], and writing this note [9]. RADHA GARY MD Jul 24, 2021 16:56
== END ==
LOC: M ONCR 13:32
PROVIDERS: ATTEND General Practice
DX: C34.11 Malignant neoplasm of upper lobe, right bronchus or lung (principal); E11.9 Type 2 diabetes mellitus without complications; I10 Essential (primary) hypertension; N18.9 Chronic kidney disease, unspecified; Z87.891 Personal history of nicotine dependence; Z88.0 Allergy status to penicillin; Z79.899 Other long term (current) drug therapy

== ENCOUNTER → 2021-08-01 | Outpatient (CLI) | payer MEDICARE, BC ==
[~2021-08-01] MED LIST changes: +CLIN-250; +MAGIC MOUTHWASH; -OMEP-221 PO; +OMEP40CA5 PO; +ONDA-84 PO; +POTA-151 PO; -POTA20TA6 PO; +PROC10TA5 PO
== END ==
LOC: M CARPUL 14:39
PROVIDERS: ATTEND Physician Assistant
DX: C34.11 Malignant neoplasm of upper lobe, right bronchus or lung (principal)

== ENCOUNTER → 2021-09-04 | Outpatient (RCR) | payer MEDICARE, BC ==
[~2021-09-04] MED LIST changes: -MAGIC MOUTHWASH
== END ==
LOC: M ONCR 08-24 07:20
PROVIDERS: ATTEND General Practice
DX: C34.11 Malignant neoplasm of upper lobe, right bronchus or lung (principal)

== ENCOUNTER → 2021-10-02 | Outpatient (RCR) | payer MEDICARE, BC ==
[~2021-10-02] MED LIST changes: +MAGIC MOUTHWASH
== END ==
LOC: M ONCR 09-05 14:16
PROVIDERS: ATTEND General Practice
DX: C34.11 Malignant neoplasm of upper lobe, right bronchus or lung (principal)

== ENCOUNTER 2021-10-13 13:57 | Outpatient (RCR) | payer MEDICARE, BC ==
[2021-10-20] MEDS ORDERED: LORA1TAB4 PO (16:32)
[2021-10-20] MEDS ORDERED: CYMB1CAP5 PO (16:39)
== END 2021-11-02 ==
LOC: M ONCR 13:57
PROVIDERS: ATTEND General Practice
DX: C34.11 Malignant neoplasm of upper lobe, right bronchus or lung (principal)

== ENCOUNTER → 2021-11-15 | Outpatient (CLI) | payer MEDICARE, BC ==
[~2021-11-15] MED LIST changes: +CYMB1CAP5 PO; +ISOVUE-370 76% 100ML VIAL As Ordered ONE; +LORA1TAB4 PO
== END ==
LOC: M RAD 13:18
PROVIDERS: ATTEND Specialist
DX: C34.11 Malignant neoplasm of upper lobe, right bronchus or lung (principal); I70.0 Atherosclerosis of aorta; I25.10 Atherosclerotic heart disease of native coronary artery without angina pectoris; N28.1 Cyst of kidney, acquired; N26.1 Atrophy of kidney (terminal); Z95.828 Presence of other vascular implants and grafts; J47.9 Bronchiectasis, uncomplicated; J98.4 Other disorders of lung
CPT/HCPCS: 71260; J1642; Q9967

== ENCOUNTER → 2021-12-12 | Outpatient (CLI) | payer MEDICARE, BC ==
[~2021-12-12] MED LIST changes: +ACET300T48 PO
== END ==
LOC: M RAD 16:14
PROVIDERS: ATTEND Specialist
DX: D47.2 Monoclonal gammopathy (principal); C34.90 Malignant neoplasm of unspecified part of unspecified bronchus or lung; R22.1 Localized swelling, mass and lump, neck
CPT/HCPCS: 70487; J1642; Q9967

== ENCOUNTER → 2022-01-08 | Outpatient (CLI) | payer MEDICARE, BC ==
[~2022-01-08] MED LIST changes: -ISOVUE-370 76% 100ML VIAL As Ordered ONE; +LIDOCAINE 1% MDV 20ML VIAL As Ordered ONE
[2022-01-08 13:10] VITALS: BP 177/74
== END ==
LOC: M IRPRO 12:01
PROVIDERS: ATTEND Specialist
DX: C79.51 Secondary malignant neoplasm of bone (principal); D47.2 Monoclonal gammopathy

== ENCOUNTER → 2022-01-17 | Outpatient (CLI) | payer MEDICARE, BC ==
[~2022-01-17] MED LIST changes: -LIDOCAINE 1% MDV 20ML VIAL As Ordered ONE
== END ==
LOC: M ONCR 14:40
PROVIDERS: ATTEND General Practice
DX: C34.11 Malignant neoplasm of upper lobe, right bronchus or lung (principal); C79.89 Secondary malignant neoplasm of other specified sites; R22.43 Localized swelling, mass and lump, lower limb, bilateral; R53.83 Other fatigue; R25.2 Cramp and spasm; M79.604 Pain in right leg; M79.601 Pain in right arm; Z79.891 Long term (current) use of opiate analgesic; Z87.891 Personal history of nicotine dependence; Z88.0 Allergy status to penicillin; Z92.3 Personal history of irradiation; Z92.21 Personal history of antineoplastic chemotherapy

== ENCOUNTER → 2022-02-01 | Outpatient (RCR) | payer MEDICARE, BC ==
[~2022-02-01] MED LIST changes: +OXYC-517 PO
== END ==
LOC: M ONCR 01-19 08:32
PROVIDERS: ATTEND General Practice
DX: C34.11 Malignant neoplasm of upper lobe, right bronchus or lung (principal); E11.9 Type 2 diabetes mellitus without complications; E03.9 Hypothyroidism, unspecified; N18.2 Chronic kidney disease, stage 2 (mild); I12.9 Hypertensive chronic kidney disease with stage 1 through stage 4 chronic kidney disease, or unspecified chronic kidney disease; K21.9 Gastro-esophageal reflux disease without esophagitis; M10.9 Gout, unspecified; Z88.0 Allergy status to penicillin; Z79.899 Other long term (current) drug therapy; Z79.890 Hormone replacement therapy; Z79.84 Long term (current) use of oral hypoglycemic drugs; Z80.6 Family history of leukemia; Z80.3 Family history of malignant neoplasm of breast; Z80.0 Family history of malignant neoplasm of digestive organs; Z82.49 Family history of ischemic heart disease and other diseases of the circulatory system; Z87.891 Personal history of nicotine dependence

== ENCOUNTER 2022-02-02 10:53 | Outpatient (RCR) | payer MEDICARE, BC | END 2022-03-04 | LOC: M ONCR 10:53 | PROVIDERS: ATTEND General Practice | DX: C34.11 Malignant neoplasm of upper lobe, right bronchus or lung (principal); C79.2 Secondary malignant neoplasm of skin; C79.51 Secondary malignant neoplasm of bone ==

== ENCOUNTER → 2022-02-15 | Outpatient (CLI) | payer MEDICARE, BC ==
[~2022-02-15] MED LIST changes: +ACET300T48
== END ==
LOC: M PLARAD 12:07
PROVIDERS: ATTEND General Practice
DX: C34.90 Malignant neoplasm of unspecified part of unspecified bronchus or lung (principal); I31.3 Pericardial effusion (noninflammatory); C79.89 Secondary malignant neoplasm of other specified sites; C50.911 Malignant neoplasm of unspecified site of right female breast
CPT/HCPCS: 78815; A9552

== ENCOUNTER → 2022-03-06 | Outpatient (CLI) | payer MEDICARE, BC ==
[~2022-03-06] MED LIST changes: -ACET300T48
== END ==
LOC: M ONCR 11:12
PROVIDERS: ATTEND General Practice
DX: C79.51 Secondary malignant neoplasm of bone (principal); C79.89 Secondary malignant neoplasm of other specified sites; R25.2 Cramp and spasm; R68.84 Jaw pain; M25.511 Pain in right shoulder; Z79.891 Long term (current) use of opiate analgesic; Z92.3 Personal history of irradiation

== ENCOUNTER → 2022-03-08 | Outpatient (CLI) | payer MEDICARE, BC | LOC: M WHC 14:35 | PROVIDERS: ATTEND General Practice | DX: C50.211 Malignant neoplasm of upper-inner quadrant of right female breast (principal) | CPT/HCPCS: 76642; 77066; G0279 ==

== ENCOUNTER 2022-03-21 14:51 | Outpatient (RCR) | payer MEDICARE, BC ==
[2022-04-06] MEDS ORDERED: ACET300T48 (10:09)
== END 2022-04-04 ==
LOC: M ONCR 14:51
PROVIDERS: ATTEND General Practice
DX: C79.51 Secondary malignant neoplasm of bone (principal); C50.111 Malignant neoplasm of central portion of right female breast; C34.11 Malignant neoplasm of upper lobe, right bronchus or lung; C79.2 Secondary malignant neoplasm of skin

== ENCOUNTER 2022-03-25 11:03 | Emergency (ER) | payer MEDICARE, BC ==
[~2022-03-25] VITALS: Ht 157.5 cm; Wt 153.0 kg
[2022-03-25 11:38] LABS: BASO # 0.1 10^3/uL (0.0-0.2); EOS # 0.2 10^3/uL (0.0-0.5); EOS % 3.9 % (0.0-3.0); HEMATOCRIT 33.4 % (36.0-47.0); HEMOGLOBIN 10.9 g/dl (12.0-15.5); LYMPH # 0.8 10^3/uL (1.5-5.0); LYMPH % 14.7 % (24.0-44.0); MEAN CORPUSCULAR HEMOGLOBIN 33.4 pg (27.0-33.0); MEAN CORPUSCULAR HGB CONC 32.6 g/dl (32.0-36.5); MEAN CORPUSCULAR VOLUME 102.5 fl (80.0-96.0); MONO # 0.4 10^3/uL (0.0-0.8); MONO % 8.6 % (2.0-8.0); NEUTROPHILS # 3.6 10^3/uL (1.5-8.5); NEUTROPHILS % 71.6 % (36.0-66.0); PLATELET COUNT, AUTOMATED 237 10^3/uL (150-450); RED BLOOD COUNT 3.26 10^6/uL (4.00-5.40); WHITE BLOOD COUNT 5.1 10^3/uL (4.0-10.0)
[2022-03-25 12:27] LABS: CK-MB VALUE MASS < 1.0 NG/ML (<3.6); CPK CREATINE PHOSPHOKINASE 38 U/L (26-192); MB/CK RELATIVE INDEX 2.63 (< OR =4)
[2022-03-25 12:33] LABS: CALCIUM LEVEL 9.5 MG/DL (8.8-10.2); CREATININE FOR GFR 1.05 MG/DL (0.55-1.30); GLOMERULAR FILTRATION RATE 53.8 (>39); POTASSIUM SERUM 4.1 MEQ/L (3.5-5.1)
[2022-03-25] MEDS ORDERED: ISOVUE-370 76% 100ML VIAL As Ordered ONE (13:04)
[2022-03-25 14:30] VITALS: BP 132/60
== END 2022-03-25 14:37 | disposition home or self-care (01) ==
LOC: M ED 11:03
DX: R07.89 Other chest pain (principal); E11.9 Type 2 diabetes mellitus without complications; I10 Essential (primary) hypertension; N18.2 Chronic kidney disease, stage 2 (mild); K21.9 Gastro-esophageal reflux disease without esophagitis; Z85.118 Personal history of other malignant neoplasm of bronchus and lung; Z79.890 Hormone replacement therapy; Z79.84 Long term (current) use of oral hypoglycemic drugs; Z79.899 Other long term (current) drug therapy; Z88.0 Allergy status to penicillin
CPT/HCPCS: 71045; 71275; 80048; 82550; 82553; 84484; 85025; 93005; 93041; 94760; 99285; Q9967

== ENCOUNTER → 2022-03-27 | Outpatient (CLI) | payer MEDICARE, BC ==
[~2022-03-27] MED LIST changes: +**SFHN** LIDOCAINE 1% MDV 20ML VIAL ONE; +**SFHN** SODIUM BICARBONATE 8.4% 50MEQ 50ML VIAL ONE
[2022-03-27 13:18] VITALS: BP 142/76
== END ==
LOC: M WHCPRO 12:20
PROVIDERS: ATTEND General Practice
DX: C50.111 Malignant neoplasm of central portion of right female breast (principal); N63.14 Unspecified lump in the right breast, lower inner quadrant

== ENCOUNTER → 2022-04-20 | Outpatient (CLI) | payer MEDICARE, BC ==
[~2022-04-20] MED LIST changes: -**SFHN** LIDOCAINE 1% MDV 20ML VIAL ONE; -**SFHN** SODIUM BICARBONATE 8.4% 50MEQ 50ML VIAL ONE; +ACET300T48; +HYDR-3713 PO
== END ==
LOC: M ONCR 12:26
PROVIDERS: ATTEND General Practice
DX: M25.511 Pain in right shoulder (principal); R68.84 Jaw pain; Z79.891 Long term (current) use of opiate analgesic; Z92.3 Personal history of irradiation

== ENCOUNTER → 2022-05-03 | Outpatient (CLI) | payer MEDICARE, BC ==
[~2022-05-03] MED LIST changes: +ACCUKIT15 XX; +ENTR200C PO; +PROHANCE 279.3MG/ML 5ML VIAL ONE; +[UNRECOGNIZED DRUG - CODE] XX
== END ==
LOC: M PLAIMG 10:34
PROVIDERS: ATTEND Specialist
DX: C34.11 Malignant neoplasm of upper lobe, right bronchus or lung (principal); R90.82 White matter disease, unspecified
CPT/HCPCS: 70553; A9576

== ENCOUNTER → 2022-05-08 | Outpatient (CLI) | payer MEDICARE, BC ==
[~2022-05-08] MED LIST changes: -PROHANCE 279.3MG/ML 5ML VIAL ONE
== END ==
LOC: M ONCR 12:54
PROVIDERS: ATTEND General Practice
DX: M25.511 Pain in right shoulder (principal)

== ENCOUNTER → 2022-05-08 | Outpatient (CLI) | payer MEDICARE, BC | LOC: M EKG 13:57 | PROVIDERS: ATTEND Specialist | DX: C34.91 Malignant neoplasm of unspecified part of right bronchus or lung (principal); I45.10 Unspecified right bundle-branch block; I49.1 Atrial premature depolarization; M25.511 Pain in right shoulder | CPT/HCPCS: 93005; G0463 ==

== ENCOUNTER → 2022-06-04 | Outpatient (CLI) | payer MEDICARE, BC ==
[~2022-06-04] MED LIST changes: +LEVO1TAB39 PO
== END ==
LOC: M RAD 16:11
PROVIDERS: ATTEND Specialist
DX: C34.91 Malignant neoplasm of unspecified part of right bronchus or lung (principal); R91.8 Other nonspecific abnormal finding of lung field; I70.0 Atherosclerosis of aorta; M47.9 Spondylosis, unspecified; Z95.828 Presence of other vascular implants and grafts

== ENCOUNTER → 2022-06-26 | Outpatient (CLI) | payer MEDICARE, BC ==
[~2022-06-26] MED LIST changes: +BACIOIN5 OD; +CEPH500C; +METF-839 PO; +METO1TAB32 PO; +NYST1POW9 TOP
== END ==
LOC: M CARPUL 12:07
PROVIDERS: ATTEND Nurse Practitioner
DX: D47.2 Monoclonal gammopathy (principal); I08.3 Combined rheumatic disorders of mitral, aortic and tricuspid valves; Z79.899 Other long term (current) drug therapy

== ENCOUNTER 2022-06-27 08:55 | Outpatient (CLI) | payer MEDICARE, BC ==
[~2022-06-27] VITALS: Ht 157.5 cm; Wt 75.7 kg
[~2022-06-27 08:55] MED LIST changes: +ACETAMINOPHEN TAB 650MG DOSE (2X325MG) PO SCH; -BACIOIN5 OD; -NYST1POW9 TOP; +diphenhydrAMINE 25MG CAP PO SCH
[2022-06-27 09:00] VITALS: BP 132/60
[2022-06-27] MEDS ORDERED: SODIUM CHLORIDE 0.9% INJ 10 ML SYR IV SCH (09:00)
[2022-06-27 10:00] VITALS: BP 136/63
[2022-06-27 11:10] VITALS: BP 123/81
[2022-06-27 12:32] VITALS: BP 151/62
[2022-06-27 13:00] VITALS: BP 166/76
[2022-06-27 13:30] VITALS: BP 163/72
[2022-07-02] MEDS ORDERED: BACIOIN5 OD (16:26)
[2022-07-03] MEDS ORDERED: NYST1POW9 TOP (15:39)
== END 2022-06-27 13:30 | disposition home or self-care (01) ==
LOC: M INFU 08:55
PROVIDERS: ATTEND Nurse Practitioner
DX: D47.2 Monoclonal gammopathy (principal); Z88.0 Allergy status to penicillin
CPT/HCPCS: 36430; J1642; P9016

== ENCOUNTER → 2022-09-10 | Outpatient (CLI) | payer MEDICARE, BC ==
[~2022-09-10] MED LIST changes: -ACETAMINOPHEN TAB 650MG DOSE (2X325MG) PO SCH; +BACIOIN5 OD; +CEPH500C PO; +NYST1POW9 TOP; -diphenhydrAMINE 25MG CAP PO SCH
== END ==
LOC: M PLARAD 14:17
PROVIDERS: ATTEND Nurse Practitioner
DX: C34.11 Malignant neoplasm of upper lobe, right bronchus or lung (principal); I65.23 Occlusion and stenosis of bilateral carotid arteries; J43.9 Emphysema, unspecified; I51.7 Cardiomegaly; I70.0 Atherosclerosis of aorta; I25.10 Atherosclerotic heart disease of native coronary artery without angina pectoris; Z95.828 Presence of other vascular implants and grafts; Z90.49 Acquired absence of other specified parts of digestive tract; I70.1 Atherosclerosis of renal artery; D25.9 Leiomyoma of uterus, unspecified; R59.0 Localized enlarged lymph nodes
CPT/HCPCS: 78815; A9552

== ENCOUNTER 2022-10-04 11:46 | Emergency (ER) | payer MEDICARE, BC ==
[~2022-10-04] VITALS: Ht 157.5 cm; Wt 65.9 kg
[~2022-10-04 11:46] MED LIST changes: +AZIT-12 PO
[2022-10-04 11:48] VITALS: BP 130/60
[2022-10-04 12:52] LABS: BASO % 0.4 % (0.0-1.0); EOS # 0.2 10^3/uL (0.0-0.5); EOS % 2.1 % (0.0-3.0); HEMATOCRIT 32.6 % (36.0-47.0); HEMOGLOBIN 10.4 g/dl (12.0-15.5); LYMPH # 0.4 10^3/uL (1.5-5.0); MEAN CORPUSCULAR HEMOGLOBIN 31.5 pg (27.0-33.0); MEAN CORPUSCULAR HGB CONC 31.9 g/dl (32.0-36.5); MEAN CORPUSCULAR VOLUME 98.8 fl (80.0-96.0); MONO # 0.6 10^3/uL (0.0-0.8); MONO % 7.2 % (2.0-8.0); NEUTROPHILS % 84.9 % (36.0-66.0); PLATELET COUNT, AUTOMATED 274 10^3/uL (150-450); WHITE BLOOD COUNT 8.2 10^3/uL (4.0-10.0)
[2022-10-04 14:06] LABS: ALBUMIN 2.6 G/DL (3.2-5.2); BILIRUBIN,DIRECT 0.2 MG/DL (<0.4); BILIRUBIN,TOTAL 0.5 MG/DL (0.3-1.2); CALCIUM LEVEL 8.7 MG/DL (8.3-10.6); CREATININE FOR GFR 1.46 MG/DL (0.55-1.30); GLOMERULAR FILTRATION RATE 36.8 (>39); POTASSIUM SERUM 5.7 MMOL/L (3.5-5.1); TOTAL PROTEIN 6.5 G/DL (5.7-8.2)
[2022-10-04] MEDS ORDERED: NS 1,000 ML IV ONE ×2 (14:15→15:40)
== END 2022-10-04 17:56 | disposition home or self-care (01) ==
LOC: M ED 11:46
DX: E86.0 Dehydration (principal); E11.9 Type 2 diabetes mellitus without complications; I10 Essential (primary) hypertension; Z88.0 Allergy status to penicillin; Z87.891 Personal history of nicotine dependence; Z79.899 Other long term (current) drug therapy

== ENCOUNTER → 2022-10-24 | Outpatient (CLI) | payer MEDICARE, BC ==
[~2022-10-24] MED LIST changes: -ACET300T48
== END ==
LOC: M ONCR 13:21
PROVIDERS: ATTEND General Practice
DX: C34.11 Malignant neoplasm of upper lobe, right bronchus or lung (principal); Z79.84 Long term (current) use of oral hypoglycemic drugs; Z79.890 Hormone replacement therapy; Z79.899 Other long term (current) drug therapy; Z86.16 Personal history of COVID-19; Z87.891 Personal history of nicotine dependence; Z88.0 Allergy status to penicillin; Z92.21 Personal history of antineoplastic chemotherapy; Z92.3 Personal history of irradiation

== ENCOUNTER → 2022-11-21 | Outpatient (CLI) | payer MEDICARE, BC ==
[~2022-11-21] VITALS: Ht 157.5 cm; Wt 62.9 kg
[~2022-11-21] MED LIST changes: +DEXA2TA PO; +FLUT50SP17; -FLUTISP; +MORP15TA2 PO; +MV-M1TAB13 PO; +PROC5TAB57 PO
[2022-11-21 10:54] VITALS: BP 130/56
== END ==
LOC: M PAL 10:32
PROVIDERS: ATTEND Nurse Practitioner Adult Health
DX: C34.11 Malignant neoplasm of upper lobe, right bronchus or lung (principal); C34.12 Malignant neoplasm of upper lobe, left bronchus or lung; C79.89 Secondary malignant neoplasm of other specified sites; C79.81 Secondary malignant neoplasm of breast; Z51.5 Encounter for palliative care; G89.3 Neoplasm related pain (acute) (chronic); R53.83 Other fatigue; Z88.0 Allergy status to penicillin; Z88.1 Allergy status to other antibiotic agents; E11.9 Type 2 diabetes mellitus without complications; I10 Essential (primary) hypertension; E03.9 Hypothyroidism, unspecified; N18.2 Chronic kidney disease, stage 2 (mild); K21.9 Gastro-esophageal reflux disease without esophagitis; M10.9 Gout, unspecified; I89.0 Lymphedema, not elsewhere classified; Z80.3 Family history of malignant neoplasm of breast; Z80.0 Family history of malignant neoplasm of digestive organs; Z79.891 Long term (current) use of opiate analgesic; Z79.899 Other long term (current) drug therapy

== ENCOUNTER → 2022-12-13 | Outpatient (CLI) | payer MEDICARE, BC ==
[~2022-12-13] MED LIST changes: +ANUS25SU PR; +ELIQ5TAB PO; +LORA1TAB23 PO; -LORA1TAB4 PO; +MIRA3350 PO; +NYST100085 TOP; +SENN-186 PO
== END ==
LOC: M RAD 14:24
PROVIDERS: ATTEND Nurse Practitioner Adult Health
DX: I82.412 Acute embolism and thrombosis of left femoral vein (principal); I82.432 Acute embolism and thrombosis of left popliteal vein; M71.22 Synovial cyst of popliteal space [Baker], left knee

== ENCOUNTER → 2022-12-13 | Outpatient (CLI) | payer MEDICARE, BC ==
[~2022-12-13] VITALS: Ht 157.5 cm; Wt 60.8 kg
[2022-12-13 13:03] VITALS: BP 105/61
== END ==
LOC: M PAL 12:57
PROVIDERS: ATTEND Nurse Practitioner Adult Health
DX: C34.11 Malignant neoplasm of upper lobe, right bronchus or lung (principal); C79.51 Secondary malignant neoplasm of bone; C79.81 Secondary malignant neoplasm of breast; Z92.3 Personal history of irradiation; Z92.21 Personal history of antineoplastic chemotherapy; Z51.5 Encounter for palliative care; G89.3 Neoplasm related pain (acute) (chronic); R53.83 Other fatigue; D47.2 Monoclonal gammopathy; K64.4 Residual hemorrhoidal skin tags; L89.159 Pressure ulcer of sacral region, unspecified stage; Z79.891 Long term (current) use of opiate analgesic; R60.0 Localized edema; Z79.52 Long term (current) use of systemic steroids; Z79.84 Long term (current) use of oral hypoglycemic drugs; Z79.899 Other long term (current) drug therapy; Z80.3 Family history of malignant neoplasm of breast; Z80.6 Family history of leukemia; Z80.0 Family history of malignant neoplasm of digestive organs; Z87.891 Personal history of nicotine dependence; Z88.0 Allergy status to penicillin; Z88.1 Allergy status to other antibiotic agents; I82.412 Acute embolism and thrombosis of left femoral vein; I82.432 Acute embolism and thrombosis of left popliteal vein; M71.22 Synovial cyst of popliteal space [Baker], left knee; Z66 Do not resuscitate
CPT/HCPCS: 93971; G0463

== ENCOUNTER → 2023-01-03 | Outpatient (CLI) | payer MEDICARE, BC ==
[~2023-01-03] VITALS: Ht 157.5 cm; Wt 128.4 kg
[~2023-01-03] MED LIST changes: +ATIV1TAB10 PO; +ESCI5SOL3 PO; +MORP-69 PO
[2023-01-03 14:05] VITALS: BP 139/72; O2SAT 97
== END ==
LOC: M PAL 13:47
PROVIDERS: ATTEND Nurse Practitioner Adult Health
DX: C34.90 Malignant neoplasm of unspecified part of unspecified bronchus or lung (principal); C79.51 Secondary malignant neoplasm of bone; C79.81 Secondary malignant neoplasm of breast; Z92.21 Personal history of antineoplastic chemotherapy; Z51.5 Encounter for palliative care; G89.3 Neoplasm related pain (acute) (chronic); Z79.891 Long term (current) use of opiate analgesic; K59.00 Constipation, unspecified; R53.83 Other fatigue; R63.0 Anorexia; F41.9 Anxiety disorder, unspecified; F32.A Depression, unspecified; I82.402 Acute embolism and thrombosis of unspecified deep veins of left lower extremity; L89.326 Pressure-induced deep tissue damage of left buttock; Z66 Do not resuscitate; Z79.01 Long term (current) use of anticoagulants; Z79.899 Other long term (current) drug therapy; Z79.52 Long term (current) use of systemic steroids; Z88.0 Allergy status to penicillin; Z88.1 Allergy status to other antibiotic agents; Z80.6 Family history of leukemia; Z80.3 Family history of malignant neoplasm of breast; Z80.0 Family history of malignant neoplasm of digestive organs; Z87.891 Personal history of nicotine dependence; Z79.84 Long term (current) use of oral hypoglycemic drugs; Z79.890 Hormone replacement therapy

== ENCOUNTER → 2023-01-17 | Outpatient (CLI) | payer MEDICARE, BC ==
[2023-01-17 13:18] VITALS: BP 115/67; TEMP 97; O2SAT 97
== END ==
LOC: M PAL 13:09
PROVIDERS: ATTEND Nurse Practitioner Adult Health
DX: C34.90 Malignant neoplasm of unspecified part of unspecified bronchus or lung (principal); C79.51 Secondary malignant neoplasm of bone; C79.81 Secondary malignant neoplasm of breast; Z51.5 Encounter for palliative care; Z92.21 Personal history of antineoplastic chemotherapy; G89.3 Neoplasm related pain (acute) (chronic); Z79.52 Long term (current) use of systemic steroids; Z79.891 Long term (current) use of opiate analgesic; Z79.899 Other long term (current) drug therapy; K59.00 Constipation, unspecified; R53.83 Other fatigue; R63.0 Anorexia; F41.9 Anxiety disorder, unspecified; F32.A Depression, unspecified; Z79.01 Long term (current) use of anticoagulants; I82.4Z2 Acute embolism and thrombosis of unspecified deep veins of left distal lower extremity; L89.326 Pressure-induced deep tissue damage of left buttock; Z66 Do not resuscitate; Z88.8 Allergy status to other drugs, medicaments and biological substances; Z88.0 Allergy status to penicillin; Z80.6 Family history of leukemia; Z80.3 Family history of malignant neoplasm of breast; Z80.0 Family history of malignant neoplasm of digestive organs; Z87.891 Personal history of nicotine dependence